=== PATIENT | male | born 1970 | race Caucasian/White ===

== ENCOUNTER 2017-01-22 11:35 | Emergency (ER) | payer SELFPAY ==
[2017-01-22] MEDS ORDERED: Acetaminophen TAB* 325 MG PO ONE (12:47)
--- NOTE | 2017-01-22 13:32 | ED ---
Upper Extremity Pain - HPI Summary HPI Summary: 46F presents with left upper arm pain. He was at work and was working on training with ropes and rope got caught around arm and was hanging partially. He feels pain in his bicep. He has not taken anything for pain. He has limited ROM of his upper arm. He denies any numbness or tingling. He is right handed. - History of Current Complaint Chief Complaint: EDExtremityUpper Stated Complaint: LT ARM INJURY Time Seen by Provider: 01/22/17 12:23 - Allergies/Home Medications Allergies/Adverse Reactions: Allergies Allergy/AdvReac Type Severity Reaction Status Date / Time Penicillins Allergy Unknown Verified 04/14/16 12:08 Reaction Details PMH/Surg Hx/FS Hx/Imm Hx Endocrine/Hematology History: Denies: Hx Diabetes Cardiovascular History: Reports: Hx Hypertension - CONTROL WITH MEDS Denies: Hx Pacemaker/ICD Respiratory History: Denies: Hx Asthma History: Denies: Hx Dialysis, Hx Renal Disease Musculoskeletal History: Reports: Other Musculoskeletal History - RIGHT CARPAL TUNNEL SYNDROME Sensory History: Denies: Hx Contacts or Glasses, Hx Hearing Aid Opthamlomology History: Denies: Hx Contacts or Glasses Psychiatric History: Denies: Hx Panic Disorder - Surgical History Surgery Procedure, Year, and Place: 1990 LEFT SHOULDER RECONSTRUCTION, [facility] Hx Anesthesia Reactions: No Infectious Disease History: No Infectious Disease History: Denies: Traveled Outside the [place] in Last 30 Days - Social History Alcohol Use: Occasionally Substance Use Type: Reports: None Smoking Status (MU): Never Smoked Tobacco Review of Systems Negative: Fever Negative: Chest Pain Negative: Shortness Of Breath Positive: Myalgia - left arm pain All Other Systems Reviewed And Are Negative: Yes Physical Exam Triage Information Reviewed: Yes Vital Signs On Initial Exam: Initial Vitals Temp Pulse Resp BP Pulse Ox 97.3 F 75 16 163/110 96 01/22/17 11:36 01/22/17 11:36 01/22/17 11:36 01/22/17 11:36 01/22/17 11:36 Vital Signs Reviewed: Yes Appearance: Positive: Well-Appearing Skin: Positive: Warm, Dry Head/Face: Positive: Normal Head/Face Inspection Eyes: Positive: Normal, Conjunctiva Clear Respiratory/Lung Sounds: Positive: Clear to Auscultation, Breath Sounds Present Cardiovascular: Positive: Normal, RRR Musculoskeletal: Positive: Strength/ROM Intact - wrist and hand left, Limited @ - elbow left, Other - good pulses, capillary refill<2 secs, pos yearson sign Diagnostics - Vital Signs Vital Signs Temp Pulse Resp BP Pulse Ox 01/22/17 11:36 97.3 F 75 16 163/110 96 - Laboratory Lab Statement: Any lab studies that have been ordered have been reviewed, and results considered in the medical decision making process. - Radiology forearm Xray Interpretation: No Acute Changes Radiology Interpretation Completed By: Radiologist elbow Xray Interpretation: No Acute Changes Radiology Interpretation Completed By: Radiologist humerus Xray Interpretation: No Acute Changes Radiology Interpretation Completed By: Radiologist Course/Dx - Course Course Of Treatment: 46F presents with left upper arm pain. He was at work and was working on training with ropes and rope got caught around arm and was hanging partially. He feels pain in his biceps. He has not taken anything for pain. He has limited ROM of his upper arm. no conner deformity on exam. limited ROM of elbow, pos yearson sign. told likely sprain biceps. do not supect tendon rupture. patient understands and agrees with plan - Diagnoses Differential Diagnosis/HQI/PQRI: Positive: Fracture (Closed), Strain, Sprain, Other - tendon rupture Provider Diagnoses: Left arm pain Discharge - Discharge Plan Condition: Good Disposition: HOME Patient Education Materials: Arm Pain (ED) Forms: *Work Release Referrals: Marquis Moreno MD [Primary Care Provider] - Additional Instructions: Take ibuprofen for pain every 6 hours Ice, elevate Follow up with primary within 7 days Return to ED if develop any new or worsening symptoms
--- NOTE | 2017-01-22 13:57 | RAD ---
INDICATION: Left forearm injury COMPARISON: None TECHNIQUE: AP and lateral views were obtained. FINDINGS: The bony structures, joint spaces, and soft tissues are normal for age. IMPRESSION: NEGATIVE EXAMINATION.
--- NOTE | 2017-01-22 13:58 | RAD ---
INDICATION: Left elbow injury COMPARISON: None TECHNIQUE: AP and lateral views were obtained. FINDINGS: There is no acute fracture or dislocation. There is no joint effusion. There is traction spurring from the olecranon. IMPRESSION: NO ACUTE BONY FINDINGS.
--- NOTE | 2017-01-22 13:58 | RAD ---
INDICATION: Left arm injury COMPARISON: None TECHNIQUE: AP and lateral views were obtained. FINDINGS: There is no acute fracture or dislocation. There are postoperative changes with rotator cuff There is soft tissue swelling. IMPRESSION: NO ACUTE BONY FINDINGS.
[2017-01-22] MEDS ORDERED: Ibuprofen TAB* 800 MG PO ONE (14:50)
[2017-01-22 15:12] VITALS: BP 154/91
== END 2017-01-22 14:55 | disposition home or self-care (01) ==
LOC: ED 11:35
DX: M79.602 Pain in left arm (principal); W23.0XXA Caught, crushed, jammed, or pinched between moving objects, initial encounter; Y92.9 Unspecified place or not applicable; Z88.0 Allergy status to penicillin; I10 Essential (primary) hypertension
CPT/HCPCS: 99282; A9270-GY

== ENCOUNTER 2017-02-02 08:25 | Day surgery (SDC) | payer OTHER ==
[~2017-02-02 08:25] MED LIST: Buffered Lidocaine 0.9% SYRIN* 5 ML/SYR SYRINGE INTRADERM ONE
[2017-02-02] MEDS ORDERED: Buffered Lidocaine 0.9% SYRIN* 5 ML/SYR SYRINGE ONE (08:50)
[2017-02-02] MEDS ORDERED: fentaNYL* 50 MCG/ML 2 ML VIAL (100 MCG VIAL) ONE ×2 (10:23→13:58)
[2017-02-02] MEDS ORDERED: Midazolam* 1 MG/ML 2 ML VIAL (2 MG) ONE (10:23)
[2017-02-02] MEDS ORDERED: Clindamycin 900 MG IVPREMIX(* 900 MG/50 ML SDV IV ONE (10:27)
[2017-02-02] MEDS ORDERED: Bupivacaine 0.25% SDV* 30 ML ONE (10:57)
[2017-02-02] MEDS ORDERED: Bupivacaine 0.5% W/EPI SDV* 30 ML VIAL ONE (11:09)
[2017-02-02] MEDS ORDERED: Dexamethasone IV* 4 MG/ML 1 ML (4 MG) ONE (11:56)
[2017-02-02] MEDS ORDERED: Propofol* 10 MG/ML 20 ML BTL IV PUSH ONE (11:56)
[2017-02-02] MEDS ORDERED: Ondansetron INJ* 2 MG/ML VIAL ONE (11:56)
[2017-02-02] MEDS ORDERED: Lidocaine 2% PF * 5 ML VIAL ONE (11:56)
[2017-02-02] MEDS ORDERED: EPHEDrine (Pressors)* 50 MG/ML VIAL ONE (12:14)
[2017-02-02 14:28] VITALS: BP 124/71
--- NOTE | 2017-02-03 07:32 | OP ---
DATE OF OPERATION: 02/02/17 - [facility] DATE OF : 72 SURGEON: Abraham Holcomb MD INSULATION MANAGER: DARRION Garcia. An household personal assistant was needed for the entirety of the procedure to assist with positioning the arm and retraction. There was also a PA student present, Dimitris Graham. ANESTHESIOLOGIST: Dr. Oshea ANESTHESIA: General with supraclavicular block, preop. PRE-OP DIAGNOSIS: Left distal biceps tendon rupture. POST-OP DIAGNOSIS: Left distal biceps tendon rupture. OPERATIVE PROCEDURE: Repair of left distal biceps tendon. INDICATIONS: Nick ruptured the distal biceps tendon last week. MRI confirmed the tear. We talked about leaving it alone versus repair and what he could expect with each option. He wanted to have the tendon repaired. We talked about risks and benefits including the risk of post-interosseous nerve injury. EBL: 5 mL. COMPLICATIONS: None. FINDINGS: The tendon had torn 75% off of the footprint at the radial tuberosity. There was still a small band, probably 20% to 25% of the tendon that was still attached at the most proximal aspect of the radial tuberosity and it had torn longitudinally leaving this band attached. DESCRIPTION OF PROCEDURE: Nick was seen in the preoperative holding area. Correct site, side, and procedure were identified. We came back to the operating room, where the arm was prepped and draped in the usual fashion and a formal time-out was performed. The arm was exsanguinated with the Esmarch and the tourniquet inflated to 250 mmHg. I began by making a 2-cm transverse incision right in the antecubital fossa at the elbow flexion crease. The dissection was carried down bluntly with the tenotomy scissors and the fascia was opened by spreading the scissors. There was a large hematoma, which was evacuated. The one band of distal biceps tendon remaining was readily apparent. I bluntly dissected any adhesions off of this all the way down to the radial tuberosity with my finger. I then delivered the remainder of the distal biceps tendon down into the distal wound by sliding my finger up the wound and milking the tendon back down into the wound. It was bulbous and degenerative at its distal end where the rupture had occurred. I then decided to go ahead and make my second incision for the 2-incision repair. This was made with a 3-cm incision centered 3.5 cm distal to the radiocapitellar joint and about a centimeter radial to the subcutaneous border of the ulna. Dissection was carried down through the subcutaneous tissue and the fascia was opened longitudinally. I then split the muscle fibers with a couple of elevators in line with the fibers. [facility] retractors were placed. The arm was fully pronated and the supinator was split to reveal the fatty bursa over the radial tuberosity. This was excised with the Metzenbaum scissors and the footprint of the biceps tendon was readily apparent. There were shards of the tendon still attached to the radial tuberosity. Again, with the forearm maximally pronated and the tuberosity in view, I could see where that remaining piece of tendon was still attached to the most proximal aspect of the tuberosity. I used my 15 blade and went ahead and released this. I then irrigated out the wound and turned my attention back to the proximal wound. I delivered both strands of the biceps tendon into the antecubital fossa wound. I placed an Allis and full tension on the strands and then debrided them back to the same level at a level where there was nothing, but good healthy tendon. I sewed them [id number] with some 2-0 FiberWire suture. I then placed 2 whip stitches up in the tendon about 4 cm of the tendon with each suture, one was with a #2 FiberWire in Krackow fashion and the other was with a #5 Ethibond suture also in Krackow fashion. I then turned my attention back to the dorsal wound. The radial tuberosity was once again visualized with the aid of retractors. I used a 4-mm zack to open up a bony trough in the middle of the radial tuberosity about 7 to 10 mm in length. I then let the arm go into some supination and used a 2.0 drill bit to drill 2 holes out the more anterior cortex of the radius. These were about a centimeter apart. I then passed a Sophia clamp through the interosseous membrane along the course of the biceps tendon and into my dorsal wound. The mid portion of a #5 Ethibond suture tail was clamped with a Sophia and pulled up into the antecubital fossa wound and then this was used to shuttle the FiberWire and Ethibond sutures that had been whipped into the tendon into the dorsal wound. I then delivered the distal biceps tendon into the dorsal wound. I then placed a couple of 0 Prolene sutures through my 2 drill holes and used those to suture shuttle one strand of #5 Ethibond and one strand of #2 FiberWire through each drill hole. I then had my household personal assistant pull full tension on the #5 Ethibond suture to deliver the distal biceps tendon into the bony trough. It went very nicely into the bony trough. I then tied off the #2 FiberWire. I then tied off the #5 Ethibond. I then checked the repair and the tendon was very nicely pulled into the trough. It moved as a unit without any gapping when I pronated and supinated the arm. I was very satisfied, so I went ahead and irrigated out the wound. Please note that I had copiously irrigated out the wound while I was preparing my trough and my drill holes, so as to minimize the chance of leaving any bony fragments in the wound. After the repair was done, I went ahead and closed the fascia and the dorsal wound with a 0 Polysorb suture. The skin was then closed with 4-0 nylon suture. I then irrigated out my antecubital fossa wound and closed the skin with 4-0 nylon suture. The wounds were dressed with Xeroform, 4x4's, sterile Webril, and a posterior slab with a lateral strut was placed with the arm in 80 degrees of flexion and in resting amount of supination , which was about 40 to 60 degrees. Tourniquet was deflated. The hand pinked up immediately. He was then awoken up and taken to recovery room in stable condition. [id number]/[facility] #: [id number] LIZA
== END 2017-02-02 14:42 | disposition home or self-care (01) ==
LOC: OREAST 08:25
PROVIDERS: ATTEND Orthopaedic Surgery Hand Surgery
DX: S46.212A Strain of muscle, fascia and tendon of other parts of biceps, left arm, initial encounter (principal); I10 Essential (primary) hypertension; X50.0XXA Overexertion from strenuous movement or load, initial encounter; Y92.9 Unspecified place or not applicable; Y99.0 Civilian activity done for income or pay
CPT/HCPCS: J1100; J2250; J2405; J2704; J3010

== ENCOUNTER 2018-06-28 12:58 | Day surgery (SDC) | payer OTHER ==
[~2018-06-28 12:58] MED LIST changes: +Famotidine IV* 10 MG/ML 2 ML (20 mg) IV ONE; +Famotidine IV* 10 MG/ML 2 ML (20 mg) ONE; +Lactated Ringers 1000 ML Bag* 1,000 ML IV SCH; +Midazolam* 1 MG/ML 5 ML VIAL (5 MG) ONE; +fentaNYL* 50 MCG/ML 2 ML VIAL (100 MCG VIAL) ONE
[2018-06-28] MEDS ORDERED: ceFAZolin 2 GM PREMIX in ORs 2 GM/50 ML BAG IVPB ONE (13:06)
[2018-06-28] MEDS ORDERED: HYDROmorphone INJ1* 1 MG/ML SYRINGE IV PRN (13:58)
[2018-06-28] MEDS ORDERED: Naloxone* 0.4 MG/ML 1 ML VIAL IV PRN (13:58)
[2018-06-28] MEDS ORDERED: DiMENhydriNATE IV* 50 MG/ML VIAL IV PUSH PRN (13:58)
[2018-06-28] MEDS ORDERED: HYDROcodone/ACETAMIN 5-325 MG* 1 TAB PO PRN (13:58)
[2018-06-28] MEDS ORDERED: Bupivacaine 0.25% SDV PF* 10 ML VIAL INJ ONE ×2 (14:34→15:46)
[2018-06-28] MEDS ORDERED: Propofol* 10 MG/ML 20 ML BTL ONE (15:10)
[2018-06-28] MEDS ORDERED: Dexamethasone IV* 4 MG/ML 1 ML (4 MG) ONE (15:10)
[2018-06-28] MEDS ORDERED: Ketorolac INJ* 30 MG/ML 1 ML VIAL ONE (15:10)
[2018-06-28] MEDS ORDERED: Ondansetron INJ* 2 MG/ML VIAL ONE (15:10)
[2018-06-28] MEDS ORDERED: Lidocaine 2% PF * 5 ML VIAL ONE (15:10)
[2018-06-28] MEDS ORDERED: Clindamycin 900 MG/D5W BAG(*) 900 MG/50 ML BAG IVPB ONE (15:17)
[2018-06-28] MEDS ORDERED: fentaNYL* 50 MCG/ML 2 ML VIAL (100 MCG VIAL) ONE ×2 (15:34→16:13)
[2018-06-28] MEDS ORDERED: KETAMINE HCL* 50 MG/ML 10 ML VIAL ONE (15:35)
[2018-06-28] MEDS ORDERED: HYDROmorphone INJ* 0.5 MG/0.5 ML SYRINGE ONE (15:53)
[2018-06-28 18:23] VITALS: BP 128/72
--- NOTE | 2018-07-14 07:17 | OP ---
OPERATIVE REPORT: DATE OF OPERATION: 06/28/18 DATE OF : 72 SURGEON: Abraham Holcomb MD.. GRIZZLYMAN: DARRION Blank. An speech language pathology assistant was needed for the entirety of the procedure to aid in positioning of the arm and retraction. ANESTHESIOLOGIST: Dr. Ruby. ANESTHESIA: General. PRE-OP DIAGNOSES: 1. 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 2. Left severe distal biceps tendinosis and tendonitis, status post surgical repair in January 2017. 3. Left radial nerve neuritis at the elbow. POST-OP DIAGNOSES: 1. 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 2. Left severe distal biceps tendinosis and tendonitis, status post surgical repair in January 2017. 3. Left radial nerve neuritis at the elbow. OPERATIVE PROCEDURE: 1. Left distal biceps tendon debridement with tenolysis. 2. Left median nerve decompression at the proximal forearm and elbow. INDICATIONS: Nick is 47 years old. I did distal biceps tendon repair in January 2017. Now, a year and a half later, he has developed over the last several months severe pain in the antecubital area and lot of median nerve symptoms. He is status post prior carpal tunnel release surgery by me, after which he had had excellent resolution in the median nerve symptoms. Any pressure in the elbow causes median nerve symptoms. He gets some sharp stabbing pains in the elbow. I got an MRI, which showed a lot of tendon thickening and tendinosis. We have been trying to treat this nonoperatively for several months; however, his symptoms continue to progress and so, given his MRI findings, we had discussed doing a debridement at the distal biceps tendon as well as decompressing the median nerve in the proximal forearm. We did have a discussion of risks and benefits including the risk of persistent nerve symptoms despite surgery, risk of biceps tendon rupture after the debridement as well as the risk of nerve injury and other general surgical risks that can occur. He understands these and he wishes to proceed with surgery. ESTIMATED BLOOD LOSS: 5 mL. COMPLICATIONS: None. FINDINGS: See above and below. DESCRIPTION OF PROCEDURE: Nick was seen in the preoperative holding area. The correct side, site, and procedure were identified. We came back to the operating room and the arm was prepped and draped in the usual fashion. A time- out was performed. The patient was positioned supine with the use of an arm table. The arm was exsanguinated with the Esmarch and the tourniquet was inflated. I then began by making a lazy-S type incision with a transverse split in the antecubital fossa, incorporating his prior incision there. Dissection was carried down and the lateral antebrachial cutaneous nerve was identified and protected throughout the case. Once I got down to the fascia, I immediately encountered a dense and fibrotic lacertus fibrosis, which was several millimeters thick and really quite dense scar tissue. I excised this in its entirety. I then identified the brachial artery and the median nerve as it coursed through the antecubital fossa. This was released from well proximal to the antecubital fossa down towards the pronator teres. It was decompressed as it coursed through towards the pronator teres. I was able to release the leading edge of the FDS tendon arc. There were some traversing veins that were ligated to complete the dissection. Larger veins were tied off with 3-0 silk ties and smaller vessels were cauterized with the bipolar. Once I had completely decompressed the median nerve, we obtained hemostasis. I then addressed the distal biceps tendon. This was encased in a lot of scar tissue. It was very thick and there was a lot of degenerative tissue around the normal, healthy-looking collagen. I came proximally and I began the debridement, debriding all of the degenerative tissue, leaving only healthy collagen. The prior Ethibond and FiberWire sutures were encountered. The portions that were removable were removed. There were quite a few adhesions and all of the adhesions were released. As I dissected down towards the attachment, there were a couple of veins that were tied off with some silk ties. I did locate the radial recurrent artery. I was actually able to preserve this with the associated venae comitantes. I did take the tenolysis and debridement all the way down to the attachment on the radius. Once the tenolysis was complete I could pull on the biceps tendon and this resulted in elbow flexion and forearm supination. With the nerve completely decompressed and the biceps tendon debridement completed, I went ahead and irrigated out the wound. Any bleeding vessels were checked for and hemostasis was obtained with the Bovie and bipolar cautery. Once everything was looking good, the skin was closed with Monocryl suture and Steri- Strips. Plain Marcaine 0.25% was infiltrated all around the operative area. The arm was placed in a soft dressing. He was taken to the recovery room in stable condition. [id number]/[facility] #: [id number] LIZA
== END 2018-06-28 18:23 | disposition home or self-care (01) ==
LOC: OREAST 12:58
PROVIDERS: ATTEND Orthopaedic Surgery Hand Surgery
DX: G56.12 Other lesions of median nerve, left upper limb (principal); G56.32 Lesion of radial nerve, left upper limb; M65.832 Other synovitis and tenosynovitis, left forearm
CPT/HCPCS: C1763; J0690; J1100; J1170; J1885; J2250; J2405; J2704; J3010; J3490

== ENCOUNTER 2018-06-28 23:36 | Inpatient (IN) | payer OTHER ==
[2018-06-28] MEDS ORDERED: fentaNYL* 50 MCG/ML 2 ML VIAL (100 MCG VIAL) IV SLOW PU ONE (23:47)
--- OUTSIDE RECORDS SUMMARY | 2018-06-28 23:49 | XMS REPORT | Continuity of Care Document ---
:1970 External Reference #:[id number] Author Name Elaina White Care Team Providers Name Role Phone Marquis Moreno M.D. Primary Care Physician Unavailable Payers Type Date Identification Numbers Payment Provider Subscriber Policy Number: [id number] [employer] Nick Fernandez PayID: [id number] [address] [address] [place] [address] Effective: 2017 Policy Number: [id number] [employer] Nick Fernandez Onset: 2017 Group Name: [phone] [address] PayID: [id number] [place] [address] Advance Directives Description No Information Available Problems Date Description Provider Status Onset: 04/12/2016 Carpal tunnel syndrome Abraham Holcomb MD Active Onset: 01/31/2017 Strain of muscle, fascia and tendon of Abraham Holcomb MD Active other parts of biceps, left arm, subsequent encounter Onset: 06/13/2018 Late effect of sprain AND/OR strain Abraham Holcomb MD Active without tendon injury Onset: 05/23/2018 Lesion of radial nerve Abraham Holcomb MD Active Onset: 04/11/2018 Lesion of median nerve Abraham Holcomb MD Active Family History Date Family Member(s) Problem(s) Comments General Hypertension Social History Type Date Description Comments Sex Unknown Lives With Occupation Currently Working ETOH Use Currently consumes alcohol Tobacco Use Start: Unknown Patient has never smoked Smoking Status Reviewed: 06/13/18 Patient has never smoked Exercise Type/Frequency Exercises regularly Allergies, Adverse Reactions, Alerts Date Description Reaction Status Severity Comments 06/13/2018 Penicillin Active 04/12/2016 NKDA Inactive Medications Medication Date Status Form Strength Qnty SIG Indications Ordering Provider Losartan Active Unknown Potassium 000 [place] Hx Tablets 5-325mg 30tabs 1 by Abraham 017 - mouth MD Zhang every 4 017 to 6 hours as needed Tramadol HCL Hx Tablets 50mg 42tabs 1-2 Abraham 017 - tablet by MD Zhang mouth 017 every 8 hours as needed pain [place] Hx Tablets 5-325mg 20tabs one to Cynthia 016 - two tabs RIMA Wise by mouth 016 every 4-6 hours as needed pain Amlodipine Hx Tablets 5mg 1 by Unknown Besylate 000 - mouth every day 017 Immunizations Description No Information Available Vital Signs Date Vital Result Comment 06/13/2018 11:16am Height 71 inches 5'11" Weight 223.00 lb Heart Rate 51 /min BP Systolic 140 mmHg BP Diastolic 82 mmHg Respiratory Rate 18 /min Pain Level 8 BMI (Body Mass Index) 31.1 kg/m2 05/23/2018 8:41am Height 71 inches 5'11" Heart Rate 72 /min BP Systolic 140 mmHg BP Diastolic 86 mmHg Body Temperature 97.1 F Pain Level 4 04/11/2018 8:58am Height 71 inches 5'11" Respiratory Rate 18 /min Pain Level 2 03/07/2018 8:05am Height 71 inches 5'11" Weight 228.00 lb BP Systolic 144 mmHg BP Diastolic 90 mmHg Respiratory Rate 16 /min Body Temperature 95.7 F Pain Level 2 BMI (Body Mass Index) 31.8 kg/m2 10/11/2017 8:03am Height 71 inches 5'11" Weight 225.00 lb Heart Rate 72 /min Respiratory Rate 16 /min Pain Level 3 BMI (Body Mass Index) 31.4 kg/m2 05/24/2017 8:19am Height 71 inches 5'11" Weight 225.00 lb Heart Rate 60 /min Respiratory Rate 15 /min Body Temperature 95.7 F Pain Level 0 BMI (Body Mass Index) 31.4 kg/m2 04/21/2017 8:23am Heart Rate 72 /min Respiratory Rate 16 /min Body Temperature 97.8 F 03/10/2017 8:24am Height 71 inches 5'11" Weight 225.00 lb Heart Rate 72 /min BP Systolic 128 mmHg BP Diastolic 82 mmHg Body Temperature 97.1 F Pain Level 5 BMI (Body Mass Index) 31.4 kg/m2 02/15/2017 3:44pm Height 71 inches 5'11" Weight 225.00 lb BP Systolic 130 mmHg BP Diastolic 78 mmHg Body Temperature 97.3 F Pain Level 3 BMI (Body Mass Index) 31.4 kg/m2 01/31/2017 1:41pm Height 71 inches 5'11" Weight 225.00 lb Heart Rate 76 /min BP Systolic 120 mmHg BP Diastolic 82 mmHg Respiratory Rate 18 /min Body Temperature 97.3 F Pain Level 3 BMI (Body Mass Index) 31.4 kg/m2 01/27/2017 8:52am Height 71 inches 5'11" Weight 225.00 lb Heart Rate 76 /min BP Systolic 139 mmHg BP Diastolic 100 mmHg Respiratory Rate 17 /min Body Temperature 96.8 F Pain Level 8 BMI (Body Mass Index) 31.4 kg/m2 04/27/2016 1:37pm Heart Rate 59 /min BP Systolic 120 mmHg BP Diastolic 78 mmHg Pain Level 0 04/12/2016 2:23pm Height 71 inches 5'11" Weight 224.00 lb Pain Level 6 BMI (Body Mass Index) 31.2 kg/m2 Results Description No Information Available Procedures Date Code Description Status 02/02/2017 69696 reinsertion ruptured biceps or triceps tendon,distal with Completed or w/o 02/02/2017 94118 reinsertion ruptured biceps or triceps tendon,distal with Completed or w/o 04/14/2016 77160 Carpal Tunnel Release Completed 04/14/2016 05990 Carpal Tunnel Release Completed Encounters Type Date Location Provider Dx Diagnosis Office Visit 05/23/2018 [facility] Abraham Holcomb, G56.12 Other lesions of 8:45a [facility] median nerve, left upper limb G56.32 Lesion of radial nerve, left upper limb S46.212D Strain of musc/fasc/tend prt biceps, left arm, subs Office Visit 04/11/2018 8:30a [facility] Abraham Holcomb G56.12 Other lesions [facility] of median nerve, left upper limb S46.212D Strain of musc/fasc/tend prt biceps, left arm, subs Office Visit 03/07/2018 [facility] Abraham S46.212D Strain of 8:15a [facility] musc/fasc/tend prt [facility] biceps, left arm, subs G56.12 Other lesions of median nerve, left upper limb S46.212D Strain of musc/fasc/tend prt biceps, left arm, subs Office Visit 10/11/2017 [facility] Abraham S46.212D Strain of 8:00a [facility] musc/fasc/tend prt [facility] biceps, left arm, subs Office Visit 05/24/2017 [facility] S46.212D Strain of 8:15a [facility] musc/fasc/tend prt [facility] biceps, left arm, subs Office Visit 01/31/2017 [facility] S46.212D Strain of 1:45p [facility] musc/fasc/tend prt [facility] biceps, left arm, subs S46.212D Strain of musc/fasc/tend prt biceps, left arm, subs Office Visit 01/27/2017 [facility] S46.212A Strain of 8:30a [facility] musc/fasc/tend prt [facility] biceps, left arm, init Office Visit 04/12/2016 [facility] G56.01 Carpal tunnel 2:00p [facility] syndrome, right [facility] upper limb Plan of Treatment Future Appointment(s):07/11/2018 9:15 am - Abraham Holcomb MD [facility]06/28/2018 9:45 am - Abraham Holcomb MD [facility]06/13/2018 - Abraham Holcomb MDG56.12 Other lesions of median nerve, left upper limbG56.32 Lesion of radial nerve, left upper limbS46.212S Strain of muscle, fascia and tendon of other parts of bicepsFollow up:Follow up : 10-14 days postop
--- OUTSIDE RECORDS SUMMARY | 2018-06-28 23:49 | XMS REPORT | Continuity of Care Document ---
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 PayID: [id number] [place] [id number] Effective: 2012 Policy Number: [id number] [facility] Kenia Chacon Jim Group Name: [place] [address] PayID: [id number] EVE Vega [id number] Onset: 2009 Policy Number: [id number] [employer] Kenia Chacon Jim PayID: [id number] [address] [place] [address] Onset: 2010 Policy Number: [id number] [employer] Kenia Ines Callaway PayID: [id number] [address] [place] [address] Expires: 2013 Policy Number: [id number] [facility] Kenia Chacon Jim [address] [place] [address] Onset: 2017 Policy Number: [id number] [employer] Kenia Chacon Jim PayID: [id number] [address] [place] [address] Advance Directives Description No Information Available Problems Date Description Provider Status Onset: 07/26/2016 Essential hypertension ANDRIA Sanchez Active Family History Date Family Member(s) Problem(s) Comments Father Hypertension Mother Hypertension Social History Type Date Description Comments Sex Unknown Marital Status Lives With Spouse Lives With Daughter Diet Healthy, Well Balanced Occupation [employer] works in [place] Tobacco Use Start: Unknown Never Smoked Cigarettes ETOH Use Occasionally consumes alcohol Recreational Drug Use Denies Drug Use Tobacco Use Start: Unknown Patient has never smoked Smoking Status Reviewed: 08/11/17 Patient has never smoked Enjoy Exercising Enjoys exercising four times/week cardio and weights Allergies, Adverse Reactions, Alerts Date Description Reaction Status Severity Comments 12/10/2007 PCN Active hives Medications Medication Date Status Form Strength Qnty SIG Indications Ordering Provider Losartan Potassium 06/19 Active Tablets 50mg 30tab take one Simi s tablet by RIMA Manzo mouth every day for heart and for blood pressure; replaces 25mg Valacyclovir HCL 05/18 Active Tablets 500mg 10tab 1 tab by Dharmesh s mouth twice [place] a day x 5 , MD days Multivitamen 07/03 Active 1 po daily Kristina [employer] Percocet 01/23 Hx Tablets 7.5-325mg 10tab 1 tab by S46.202A Dharmesh s mouth three [place] - times a day , 08/11 as needed /2017 for pain Losartan Potassium 07/26 Hx Tablets 25mg 90tab 1 by mouth I10 Shawnti s every day Mildred Aguila, - [employer] 06/19 Losartan Potassium 07/26 Hx Tablets 25mg 90tab Take One I10 Shawnti s Tablet By Mildred Aguila, - Mouth Every [employer] Amlodipine 06/07 Hx Tablets 10mg 30tab 1 by mouth I10 Kori Besylate /2015 s every day Kristina, - [employer] 08/10 Prednisone 03/30 Hx Tablets 20mg 10tab take 2 tabs R20.2 Kori s by mouth Kristina, - every day x [employer] 06/07 /2015 Doxycycline 01/18 Hx Tablets 100mg 20tab 1 tab by L03.011 Jm Hyclate /2015 s mouth twice Mariel - a day for III, 06/07 10 days for [employer] infection Amlodipine 08/03 Hx Tablets 5mg 30tab 1 by mouth I10 Kori Besylate /2015 s every day Kristina, - [employer] 06/07 Lisinopril 07/01 Hx Tablets 5mg 30tab 1 by mouth I10 Kori s every day Kristina, - [employer] 08/03 Hydrochlorothiazid 06/01 Hx Capsules 12.5mg 30cap take one I10 Kori s capsule by Kristina, - mouth every [employer] 07/01 Hydrocodone/Acetam 12/24 Hx Tablets 5-325mg 40for 1 or 2 po 847.1 wnt ty q6hr prn Mildred Aguila, - severe pain [employer] 12/28 Ibuprofen 12/24 Hx Tablets 600mg 60tab 1 tid po 847.1 nt s for pain, Mildred Aguila, - take with [employer] 03/11 Return To Work 07/23 Hx may return 840.8 to work Wed Mildred Aguila, - Jul 29 [employer] 08/02 without restriction s Physical Therapy 07/20 Hx eval and 840.8 nt treat right Mildred Aguila, - shoulder [employer] 12/28 pain/strain No Work 07/20 Hx 840.8 wnt Mildred Aguila, - [employer] 07/23 Erythromycin 12/09 Hx Ointment 5mg/GM 1gm Opth 372.03 Ointment To Mildred Aguila, - Both Eyes 4 [employer] 03/12 Times Daily For 5 Days Medications Administered in Office Medication Date Status Form Strength Qnty SIG Indications Ordering Provider TB,Intradermal Administered Injection Unknown (PPD, Mantoux) 015 Immunizations CPT Code Status Date Vaccine Lot # [id number] Given 04/27/2017 Influenza Virus Vaccine, Quadrivalent, 3 Yr > Quad, Preserv Free 13965 Given 05/27/2016 Influenza Virus Vaccine, Quadrivalent, 3 Yr > Quad, Preserv Free 95925 Given 01/19/2016 Td Age 7 to adult (Tenivac, Decavac, Mass [id number]ologics) 74873 Given 05/26/2015 Influenza Virus Vaccine, Quadrivalent, 3 Yr > Quad, Preserv Free 48272 Given Unknown Influenza Virus Vaccine, Quadrivalent, 3 Yr > Quad, Preserv Free Vital Signs Date Vital Result Comment 06/19/2018 3:45pm Weight 221.00 lb Weight 100.246 kg BP Systolic 148 mmHg BP Diastolic 88 mmHg Heart Rate 64 /min Body Temperature 97.8 F Respiratory Rate 16 /min Height 70 inches 5'10" BMI (Body Mass Index) 31.7 kg/m2 O2 % BldC Oximetry 96 % 08/11/2017 8:54am Weight 228.00 lb Weight 103.421 kg BP Systolic 138 mmHg BP Diastolic 85 mmHg Heart Rate 56 /min Body Temperature 95.8 F Height 70 inches 5'10" BMI (Body Mass Index) 32.7 kg/m2 01/23/2017 4:35pm Weight 222.00 lb Weight 100.699 kg BP Systolic 138 mmHg BP Diastolic 100 mmHg Heart Rate 68 /min Body Temperature 97.0 F Respiratory Rate 16 /min 08/10/2016 8:53am Weight 229.00 lb Weight 103.874 kg BP Systolic 140 mmHg BP Diastolic 79 mmHg Heart Rate 72 /min 07/26/2016 9:59am Weight 234.00 lb Weight 106.142 kg BP Systolic 156 mmHg BP Diastolic 92 mmHg Heart Rate 64 /min Body Temperature 98.3 F Respiratory Rate 16 /min O2 % BldC Oximetry 98 % 06/07/2016 8:13am Weight 222.00 lb Weight 100.699 kg BP Systolic 140 mmHg BP Diastolic 90 mmHg Heart Rate 60 /min Respiratory Rate 12 /min Height 70 inches 5'10" BMI (Body Mass Index) 31.9 kg/m2 03/30/2016 4:32pm Weight 218.00 lb Weight 98.885 kg BP Systolic 134 mmHg BP Diastolic 88 mmHg Heart Rate 56 /min Body Temperature 98.5 F Respiratory Rate 16 /min 01/19/2016 3:27pm Weight 223.00 lb Weight 101.153 kg BP Systolic 130 mmHg BP Diastolic 80 mmHg Heart Rate 61 /min Body Temperature 98.3 F 08/03/2015 9:49am Weight 224.00 lb Weight 101.606 kg BP Systolic 132 mmHg BP Diastolic 84 mmHg Heart Rate 76 /min 07/01/2015 8:46am Weight 223.50 lb Weight 101.380 kg BP Systolic 142 mmHg repeat 134/90 BP Diastolic 92 mmHg repeat 134/90 Heart Rate 68 /min 06/01/2015 1:29pm Weight 224.00 lb Weight 101.606 kg BP Systolic 156 mmHg repeat 144/88 BP Diastolic 100 mmHg repeat 144/88 Heart Rate 70 /min Height 70 inches 5'10" BMI (Body Mass Index) 32.1 kg/m2 Right Visual Acuity Distance 20/20 Left Visual Acuity Distance 20/13 Both Visual Acuity Distance 20/13 05/28/2014 7:58am Weight 223.00 lb Weight 101.153 kg BP Systolic 142 mmHg BP Diastolic 90 mmHg Heart Rate 72 /min Height 70.5 inches 5'10.50" BMI (Body Mass Index) 31.5 kg/m2 05/22/2013 8:09am Weight 219.00 lb Weight 99.338 kg BP Systolic 130 mmHg BP Diastolic 86 mmHg Heart Rate 64 /min Height 70.5 inches 5'10.50" BMI (Body Mass Index) 31.0 kg/m2 07/03/2012 8:07am Weight 220.00 lb Weight 99.792 kg BP Systolic 134 mmHg BP Diastolic 92 mmHg Heart Rate 64 /min Height 70 inches 5'10" BMI (Body Mass Index) 31.6 kg/m2 06/29/2011 2:48pm Weight 228.00 lb Weight 103.421 kg BP Systolic 130 mmHg BP Diastolic 86 mmHg Heart Rate 72 /min Body Temperature 97.6 F Right Visual Acuity Distance 20/30 No Correction Left Visual Acuity Distance 20/20 No Correction Both Visual Acuity Distance 20/20 No Correction Last Menstrual Period 0 04/11/2011 8:54am Weight 228.00 lb Weight 103.421 kg BP Systolic 152 mmHg BP Diastolic 80 mmHg Heart Rate 68 /min 03/30/2011 11:08am BP Systolic 118 mmHg BP Diastolic 70 mmHg Heart Rate 64 /min Body Temperature 97.1 F 03/11/2011 8:02am Weight 223.00 lb Weight 101.153 kg BP Systolic 140 mmHg BP Diastolic 86 mmHg Heart Rate 56 /min Body Temperature 96.7 F Height 67 inches 5'7" BMI (Body Mass Index) 34.9 kg/m2 12/28/2010 9:22am Weight 226.00 lb Weight 102.514 kg BP Systolic 130 mmHg BP Diastolic 80 mmHg Heart Rate 72 /min Body Temperature 96.5 F 12/24/2010 2:45pm Weight 224.00 lb Weight 101.606 kg BP Systolic 152 mmHg BP Diastolic 98 mmHg Heart Rate 74 /min Body Temperature 97.3 F O2 % BldC Oximetry 99 % 07/23/2009 8:03am Weight 224.00 lb Weight 101.606 kg BP Systolic 142 mmHg BP Diastolic 88 mmHg Heart Rate 56 /min 07/20/2009 9:13am Weight 227.00 lb Weight 102.967 kg BP Systolic 142 mmHg BP Diastolic 90 mmHg Heart Rate 80 /min 03/12/2009 1:26pm Weight 220.00 lb Weight 99.792 kg BP Systolic 144 mmHg BP Diastolic 82 mmHg Heart Rate 64 /min Height 70 inches 5'10" BMI (Body Mass Index) 31.6 kg/m2 Right Visual Acuity Distance 20/25 Left Visual Acuity Distance 20/20 Both Visual Acuity Distance 20/20 12/10/2007 8:50am Weight 227.00 lb Weight 102.967 kg BP Systolic 138 mmHg BP Diastolic 84 mmHg Heart Rate 76 /min Results Test Date Facility Test Result H/L Range Note CBC Auto Diff 08/11/2017 [facility] White Blood 4.9 10^3/uL 3.5-10.8 [phone] Count Red Blood Count 5.46 10^6/uL High 4.0-5.4 Hemoglobin 15.0 g/dL 14.0-18.0 Hematocrit 46 % 42-52 Mean Corpuscular Volume 83 fL 80-94 Mean Corpuscular Hemoglobin 28 pg 27-31 Mean Corpuscular HGB Conc 33 g/dL 31-36 Red Cell Distribution Width 15 % 10.5-15 Platelet Count 177 10^3/uL 150-450 Mean Platelet Volume 10 um3 7.4-10.4 Abs Neutrophils 2.8 10^3/uL 1.5-7.7 Abs Lymphocytes 1.3 10^3/uL 1.0-4.8 Abs Monocytes 0.4 10^3/uL 0-0.8 Abs Eosinophils 0.3 10^3/uL 0-0.6 Abs Basophils 0.1 10^3/uL 0-0.2 Abs Nucleated RBC 0 10^3/uL Granulocyte % 57.1 % 38-83 Lymphocyte % 27.5 % 25-47 Monocyte % 8.7 % 1-9 Eosinophil % 5.7 % 0-6 Basophil % 1.0 % 0-2 Nucleated Red Blood Cells % 0 Comp Metabolic Panel 08/11/2017 [facility] Sodium 138 mmol/L 133-145 [phone] Potassium 3.9 mmol/L 3.5-5.0 Chloride 103 mmol/L 101-111 Co2 Carbon Dioxide 31 mmol/L 22-32 Anion Gap 4 mmol/L 2-11 Glucose 100 mg/dL 70-100 Blood Urea Nitrogen 14 mg/dL 6-24 Creatinine 0.90 mg/dL 0.67-1.17 BUN/Creatinine Ratio 15.6 8-20 Calcium 9.4 mg/dL 8.6-10.3 Total Protein 6.7 g/dL 6.4-8.9 Albumin 4.6 g/dL 3.2-5.2 Globulin 2.1 g/dL 2-4 Albumin/Globulin Ratio 2.2 1-3 Total Bilirubin 0.80 mg/dL 0.2-1.0 Alkaline Phosphatase 50 U/L 34-104 Alt 25 U/L 7-52 Ast 23 U/L 13-39 Egfr Non- 91.3 >60 Egfr 117.4 >60 1 Lipid Profile 08/11/2017 [facility] Triglycerides 145 mg/dL 2 (Trig/Chol/HDL) [phone] Cholesterol 173 mg/dL 3 HDL Cholesterol 42.8 mg/dL 4 LDL Cholesterol 101 mg/dL 5 Laboratory test 07/26/2016 [facility] T3 Total 1.33 ng/mL 0.87-1.78 6 finding [phone] Free T4 (Free Thyroxine) 0.82 ng/dL 0.61-1.12 7 TSH (Thyroid Stim Horm) 2.63 mcIU/mL 0.34-5.60 8 Thyroperoxidase AB 1.81 IU/mL <9 9 CBC Auto Diff 06/07/2016 [facility] White Blood 4.2 10^3/uL 3.5-10.8 [phone] Count Red Blood Count 5.48 10^6/uL High 4.0-5.4 Hemoglobin 14.9 g/dL 14.0-18.0 Hematocrit 45 % 42-52 Mean Corpuscular Volume 82 fL 80-94 Mean Corpuscular Hemoglobin 27 pg 27-31 Mean Corpuscular HGB Conc 33 g/dL 31-36 Red Cell Distribution Width 15 % 10.5-15 Platelet Count 169 10^3/uL 150-450 Mean Platelet Volume 10 um3 7.4-10.4 Abs Neutrophils 2.4 10^3/uL 1.5-7.7 Abs Lymphocytes 1.1 10^3/uL 1.0-4.8 Abs Monocytes 0.4 10^3/uL 0-0.8 Abs Eosinophils 0.2 10^3/uL 0-0.6 Abs Basophils 0.1 10^3/uL 0-0.2 Abs Nucleated RBC 0.01 10^3/uL Granulocyte % 56.2 % 38-83 Lymphocyte % 27.2 % 25-47 Monocyte % 9.8 % High 1-9 Eosinophil % 5.5 % 0-6 Basophil % 1.3 % 0-2 Nucleated Red Blood Cells % 0.1 Comp Metabolic Panel 06/07/2016 [facility] Sodium 138 mmol/L 133-145 [phone] Potassium 4.3 mmol/L 3.5-5.0 Chloride 103 mmol/L 101-111 Co2 Carbon Dioxide 29 mmol/L 22-32 Anion Gap 6 mmol/L 2-11 Glucose 91 mg/dL 70-100 Blood Urea Nitrogen 15 mg/dL 6-24 Creatinine 0.88 mg/dL 0.67-1.17 BUN/Creatinine Ratio 17.0 8-20 Calcium 9.2 mg/dL 8.6-10.3 Total Protein 6.4 g/dL 6.4-8.9 Albumin 4.4 g/dL 3.2-5.2 Globulin 2.0 g/dL 2-4 Albumin/Globulin Ratio 2.2 1-3 Total Bilirubin 0.80 mg/dL 0.2-1.0 Alkaline Phosphatase 42 U/L 34-104 Alt 26 U/L 7-52 Ast 19 U/L 13-39 Egfr Non- 94.1 >60 Egfr 121.0 >60 10 Lipid Profile 06/07/2016 [facility] Triglycerides 128 mg/dL 11 (Trig/Chol/HDL) [phone] Cholesterol 160 mg/dL 12 HDL Cholesterol 39.0 mg/dL 13 LDL Cholesterol 95 mg/dL 14 Laboratory test 06/07/2016 [facility] PSA Screening 0.407 0-4.000 15 finding [phone] ng/mL CBC Auto Diff 06/01/2015 [facility] White Blood 6.9 4.8-10.8 [phone] Count 10^3/uL Red Blood Count 5.58 10^6/uL High 4.0-5.4 Hemoglobin 15.3 g/dL 14.0-18.0 Hematocrit 47 % 42-52 Mean Corpuscular Volume 84 fL 80-94 Mean Corpuscular Hemoglobin 27 pg 27-31 Mean Corpuscular HGB Conc 33 g/dL 31-36 Red Cell Distribution Width 15 % 10.5-15 Platelet Count 177 10^3/uL 150-450 Mean Platelet Volume 10 um3 7.4-10.4 Abs Neutrophils 4.6 10^3/uL 1.5-7.7 Abs Lymphocytes 1.4 10^3/uL 1.0-4.8 Abs Monocytes 0.5 10^3/uL 0-0.8 Abs Eosinophils 0.3 10^3/uL 0-0.6 Abs Basophils 0 10^3/uL 0-0.2 Abs Nucleated RBC 0.01 10^3/uL Granulocyte % 66.7 % 38-83 Lymphocyte % 19.9 % Low 25-47 Monocyte % 7.7 % 1-9 Eosinophil % 5.0 % 0-6 Basophil % 0.7 % 0-2 Nucleated Red Blood Cells % 0.2 Comp Metabolic Panel 06/01/2015 [facility] Sodium 137 mmol/L 133-145 [phone] Potassium 3.9 mmol/L 3.5-5.0 Chloride 102 mmol/L 101-111 Co2 Carbon Dioxide 30 mmol/L 22-32 Anion Gap 5 mmol/L 2-11 Glucose 85 mg/dL 70-100 Blood Urea Nitrogen 14 mg/dL 6-24 Creatinine 0.94 mg/dL 0.67-1.17 BUN/Creatinine Ratio 14.9 8-20 Calcium 9.4 mg/dL 8.6-10.3 Total Protein 6.4 g/dL 6.4-8.9 Albumin 4.5 g/dL 3.2-5.2 Globulin 1.9 g/dL Low 2-4 Albumin/Globulin Ratio 2.4 1-3 Total Bilirubin 0.60 mg/dL 0.2-1.0 Alkaline Phosphatase 47 U/L 34-104 Alt 20 U/L 7-52 Ast 16 U/L 13-39 Egfr Non- 87.6 >60 Egfr 112.6 >60 16 Lipid Profile 06/01/2015 [facility] Triglycerides 188 mg/dL 17 (Trig/Chol/HDL) [phone] Cholesterol 148 mg/dL 18 HDL Cholesterol 34.5 mg/dL 19 LDL Cholesterol 76 mg/dL 20 Urine DIP 06/01/2015 [facility] Specific [place] 1.01 1.01-1.02 (607)- - Urine pH 5 5-6 Leukocytes NEG Neg Urine Nitrites NEG Neg Total Protein, Urine NEG Neg Urine Glucose NORM Norm Urine Ketones NEG Neg Urobilinogen NORM Norm Urine Bilirubin NEG Neg Urine Blood NEG Neg CBC Auto Diff 05/28/2014 [facility] White Blood 6.1 10^3/uL 4.8-10.8 21 [phone] Count Red Blood Count 5.45 10^6/uL High 4.0-5.4 Hemoglobin 15.1 g/dL 14.0-18.0 Hematocrit 45 % 42-52 Mean Corpuscular Volume 83 fL 80-94 Mean Corpuscular Hemoglobin 28 pg 27-31 Mean Corpuscular HGB Conc 33 g/dL 31-36 Red Cell Distribution Width 14 % 10.5-15 Platelet Count 162 10^3/uL 150-450 Mean Platelet Volume 10 um3 7.4-10.4 Abs Neutrophils 3.6 10^3/uL 1.5-7.7 Abs Lymphocytes 1.4 10^3/uL 1.0-4.8 Abs Monocytes 0.5 10^3/uL 0-0.8 Abs Eosinophils 0.5 10^3/uL 0-0.6 Abs Basophils 0 10^3/uL 0-0.2 Abs Nucleated RBC 0 10^3/uL Granulocyte % 59.4 % 38-83 Lymphocyte % 22.7 % Low 25-47 Monocyte % 9.0 % 1-9 Eosinophil % 8.2 % High 0-6 Basophil % 0.7 % 0-2 Nucleated Red Blood Cells % 0.1 Comp Metabolic Panel 05/28/2014 [facility] Sodium 139 mmol/L 133-145 [phone] Potassium 4.4 mmol/L 3.5-5.0 22 Chloride 104 mmol/L 101-111 Co2 Carbon Dioxide 30 mmol/L 22-32 Anion Gap 5 mmol/L 2-11 Glucose 100 mg/dL 70-100 Blood Urea Nitrogen 15 mg/dL 6-24 Creatinine 0.97 mg/dL 0.67-1.17 BUN/Creatinine Ratio 15.5 8-20 Calcium 9.0 mg/dL 8.6-10.3 Total Protein 6.6 g/dL 6.4-8.9 Albumin 4.5 g/dL 3.2-5.2 Globulin 2.1 g/dL 2-4 Albumin/Globulin Ratio 2.1 1-3 Total Bilirubin 0.60 mg/dL 0.2-1.0 Alkaline Phosphatase 48 U/L 34-104 Alt 33 U/L 7-52 Ast 22 U/L 13-39 Egfr Non- 84.9 >60 Egfr 109.2 >60 23 Lipid Profile 05/28/2014 [facility] Triglycerides 137 mg/dL 24 (Trig/Chol/HDL) [phone] Cholesterol 156 mg/dL 25 HDL Cholesterol 35.8 mg/dL 26 LDL Cholesterol 93 mg/dL 27 Laboratory test 05/28/2014 [facility] TSH (Thyroid 2.12 0.34-5.60 28 finding [phone] Stimulating IU/mL Horm) Urine DIP 05/28/2014 [facility] Specific [place] 1.01 1.01-1.02 (607)- - Urine pH 6 5-6 Leukocytes NEG Neg Urine Nitrites NEG Neg Total Protein, Urine TRACE Neg Urine Glucose NORM Norm Urine Ketones NEG Neg Urobilinogen NORM Norm Urine Bilirubin NEG Neg Urine Blood TRACE Neg Comp Metabolic Panel 05/22/2013 [facility] Sodium 139 mmol/L 133-145 [phone] Potassium 3.8 mmol/L 3.5-5.0 Chloride 104 mmol/L 101-111 Co2 Carbon Dioxide 29.0 mmol/L 22-32 Anion Gap 6.0 mmol/L 2-11 Glucose 92 mg/dL 70-100 Blood Urea Nitrogen 13 mg/dL 6-24 Creatinine 0.90 mg/dL 0.50-1.40 BUN/Creatinine Ratio 14.4 8-20 Calcium 9.0 mg/dL 8.1-9.9 Total Protein 6.2 g/dL 6.2-8.1 Albumin 4.3 g/dL 3.6-5.4 Globulin 1.9 g/dL Low 2-4 Albumin/Globulin Ratio 2.3 1-3 Total Bilirubin 1.2 mg/dL 0.4-1.5 Alkaline Phosphatase 49 U/L 30-110 Alt 32 U/L 14-54 Ast 28 U/L 12-42 Egfr Non- 93.0 >60 Egfr 119.6 >60 29 CBC Auto Diff 05/22/2013 [facility] White Blood 4.8 10^3/uL 4.8-10.8 [phone] Count Red Blood Count 5.38 10^6/uL 4.0-5.4 Hemoglobin 14.8 g/dL 14.0-18.0 Hematocrit 45 % 42-52 Mean Corpuscular Volume 84 fL 80-94 Mean Corpuscular Hemoglobin 28 pg 27-31 Mean Corpuscular HGB Conc 33 g/dL 31-36 Red Cell Distribution Width 14 % 10.5-15 Platelet Count 154 10^3/uL 150-450 Mean Platelet Volume 10 um3 7.4-10.4 Abs Neutrophils 2.7 10^3/uL 1.5-7.7 Abs Lymphocytes 1.2 10^3/uL 1.0-4.8 Abs Monocytes 0.4 10^3/uL 0-0.8 Abs Eosinophils 0.4 10^3/uL 0-0.6 Abs Basophils 0 10^3/uL 0-0.2 Abs Nucleated RBC 0.01 10^3/uL Granulocyte % 56.5 % 38-83 Lymphocyte % 25.6 % 25-47 Monocyte % 8.3 % 1-9 Eosinophil % 8.9 % High 0-6 Basophil % 0.7 % 0-2 Nucleated Red Blood Cells % 0.1 Lipid Profile 05/22/2013 [facility] Triglycerides 179 mg/dL 40-200 (Trig/Chol/HDL) [phone] Cholesterol 158 mg/dL Less than 200 HDL Cholesterol 39 mg/dL Low 40-60 30 Cholesterol/HDL Ratio 4.1 Average 1-4.44 LDL Cholesterol 83.2 Less Than 100 31 Laboratory test 05/22/2013 [facility] Negra (Anti- Nuclear Negative Negative 32 finding [phone] AB) Screen Erythrocyte Sed Rate 5 mm/Hr 0-14 33 C Reactive Protein < 0.5 mg/dL Less than 0.5 34 TSH (Thyroid Stimulating Horm) 2.18 miu/mL 0.34-5.60 35 Urine DIP 05/22/2013 In House Lab Leukocytes NEG Neg (607)- - Urine Nitrites NEG Neg Urine pH 6 5-6 Total Protein, Urine NEG Neg Urine Glucose NORM Norm Urine Ketones NEG Neg Urobilinogen NORM Norm Urine Bilirubin NEG Neg Urine Blood NEG Neg Specific [place] 1.02 1.01-1.02 CBC Auto Diff 07/03/2012 [facility] White Blood 5.7 10^3/uL 4.8-10.8 [phone] Count Red Blood Count 5.42 10^6/uL High 4.0-5.4 Hemoglobin 14.9 g/dL 14.0-18.0 Hematocrit 45 % 42-52 Mean Corpuscular Volume 83 fL 80-94 Mean Corpuscular Hemoglobin 28 pg 27-31 Mean Corpuscular HGB Conc 33 g/dL 31-36 Red Cell Distribution Width 14 % 10.5-15 Platelet Count 156 10^3/uL 150-450 Mean Platelet Volume 10 um3 7.4-10.4 Abs Neutrophils 3.2 10^3/uL 1.5-7.7 Abs Lymphocytes 1.5 10^3/uL 1.0-4.8 Abs Monocytes 0.5 10^3/uL 0-0.8 Abs Eosinophils 0.4 10^3/uL 0-0.6 Abs Basophils 0 10^3/uL 0-0.2 Abs Nucleated RBC 0.01 10^3/uL Granulocyte % 57.1 % 38-83 Lymphocyte % 25.8 % 25-47 Monocyte % 8.8 % 1-9 Eosinophil % 7.5 % High 0-6 Basophil % 0.8 % 0-2 Nucleated Red Blood Cells % 0.1 Comp Metabolic Panel 07/03/2012 [facility] Sodium 138 mmol/L 133-145 [phone] Potassium 3.9 mmol/L 3.5-5.0 Chloride 102 mmol/L 101-111 Co2 Carbon Dioxide 29.0 mmol/L 22-32 Anion Gap 7.0 mmol/L 2-11 Glucose 98 mg/dL 70-100 Blood Urea Nitrogen 11 mg/dL 6-24 Creatinine 1.00 mg/dL 0.50-1.40 BUN/Creatinine Ratio 11.0 8-20 Calcium 9.0 mg/dL 8.1-9.9 Total Protein 6.3 g/dL 6.2-8.1 Albumin 4.4 g/dL 3.6-5.4 Globulin 1.9 g/dL Low 2-4 Albumin/Globulin Ratio 2.3 1-3 Total Bilirubin 0.8 mg/dL 0.4-1.5 Alkaline Phosphatase 47 U/L 30-110 Alt 27 U/L 14-54 Ast 22 U/L 12-42 Egfr Non- 82.8 >60 Egfr 106.4 >60 36 Lipid Profile 07/03/2012 [facility] Triglycerides 136 mg/dL 40-200 (Trig/Chol/HDL) [phone] Cholesterol 156 mg/dL Less than 200 HDL Cholesterol 39 mg/dL Low 40-60 37 Cholesterol/HDL Ratio 4.0 Average 1-4.44 LDL Cholesterol 89.8 mg/dL Less Than 100 38 Urine DIP 07/03/2012 In House Lab Leukocytes NEG Neg (607)- - Urine Nitrites NEG Neg Urine pH 7 High 5-6 Total Protein, Urine NEG Neg Urine Glucose NORM Norm Urine Ketones NEG Neg Urobilinogen NORM Norm Urine Bilirubin NEG Neg Urine Blood NEG Neg Specific [place] NA Low 1.01-1.02 Laboratory test 06/29/2011 [facility] Erythrocyte Sed 4 MM/HR 0-15 finding [phone] Rate C Reactive Protein 0.5 mg/dL Less Than 0.5 Basic Metabolic 06/29/2011 [facility] Sodium 142 mmol /L 135-145 Panel [phone] Potassium 3.8 mmol/L 3.5-5.0 Chloride 103 mmol/L 101-111 Co2 (Carbon Dioxide) 31.0 mmol/L 22-32 Anion Gap 8.0 mmol/L 2-11 39 Glucose 101 mg/dL High 70-100 BUN 12 mg/dL 6-24 Creatinine 1.1 mg/dL 0.50-1.40 One Over Creatinine 0.90 BUN/Creatinine Ratio 10.9 8-20 Calcium 9.6 mg/dL 8.1-9.9 eGFR Non- 74.5 > 60 eGFR 95.8 > 60 40 CBC Auto Diff 06/29/2011 [facility] White Blood 6.0 CUMM 4.8-10.8 [phone] Count Red Cell Count 5.08 CUMM 4.6-6.2 Hemoglobin 14.2 g/dL 14.0-18.0 Hematocrit 42 % 42-52 Mean Corpuscular Volume 82 um3 80-94 Mean Corpuscular Hemoglob 28 pg 27-31 Mean Corpuscular HGB Cone 34 g/dL 32-36 Redcell Distribution WDTH 14 % 10.5-15 Platelet Count 169 CUMM 150-450 Mean Platelet Volume 10.2 um3 7.4-10.4 Gran % 63.7 % 38-83 Lymph % 23.2 % Low 25-47 Mononuclear % 6.2 % 1-9 Eosinophil % 6.5 % High 0-6 Basophil % 0.4 % 0-2 Abs Lymphs 1.4 1.0-4.8 Abs Mononuclear 0.4 0-0.8 Absolute Neutrophil Count 3.8 1.5-7.7 Abs Eosinophils 0.4 0-0.6 Abs Basophils 0 0-0.2 Laboratory 03/30/2011 [facility] Surgical ----- 41 test finding [phone] Pathology <SEE NOTE> Urine DIP 03/11/2011 In House Lab Leukocytes NEG Neg (607)- - Urine Nitrites NEG Neg Urine pH 5-6 5-6 Total Protein, Urine NEG Neg Urine Glucose NORM Norm Urine Ketones NEG Neg Urobilinogen NORM Norm Urine Bilirubin NEG Neg Urine Blood NEG Neg Specific [place] N/A Low 1.01-1.02 Laboratory test 07/15/2009 [facility] Troponin-I (TnI ) 0 NG/ML 42 finding [phone] Basic Metabolic 07/15/2009 [facility] Sodium 138 mmol /L 135-14 Panel Stat [phone] Potassium 3.9 mmol/L 3.5-5.0 Chloride 104 mmol/L 101-111 Co2 (Carbon Dioxide) 28.0 mmol/L 22-32 Anion Gap 6.0 mmol/L 2-11 43 Glucose 114 mg/dL High 70-100 44 BUN 13 mg/dL 6-24 Creatinine 0.90 mg/dL 0.50-1.40 One Over Creatinine 1.10 BUN/Creatinine Ratio 14.4 8-20 Calcium 9.5 mg/dL 8.1-9.9 45 eGFR Non- 100.9 > 60 eGFR 122.1 > 60 46 CBC With 07/15/2009 [facility] White Blood 5.9 CUMM 4.8-10.8 Electronic Diff [phone] Count Stat Red Cell Count 5.56 CUMM 4.6-6.2 Hemoglobin 15.3 g/dL 14.0-18.0 Hematocrit 45 % 42-52 Mean Corpuscular Volume 81 um3 80-94 Mean Corpuscular Hemoglob 28 pg 27-31 Mean Corpuscular HGB Cone 34 g/dL 32-36 Redcell Distribution WDTH 14 % 10.5-15 Platelet Count 188 CUMM 150-450 Mean Platelet Volume 8.8 um3 7.4-10.4 Gran % 62.0 % 38-83 Lymph % 24.2 % Low 25-47 Mononuclear % 6.9 % 1-9 Eosinophil % 6.6 % High 0-6 Basophil % 0.3 % 0-2 Abs Lymphs 1.4 1.0-4.8 Abs Mononuclear 0.4 0-0.8 Absolute Neutrophil Count 3.6 1.5-7.7 Abs Eosinophils 0.4 0-0.6 Abs Basophils 0 0-0.2 Urine DIP 03/12/2009 In House Lab Leukocytes NEG Neg (607)- - Urine Nitrites NEG Neg Urine pH 5 5-6 Total Protein, Urine NEG Neg Urine Glucose NORM Norm Urine Ketones NEG Neg Urobilinogen NORM Norm Urine Bilirubin NEG Neg Urine Blood NEG Neg Specific [place] N/A Low 1.01-1.02 1 Because ethnic data is not always readily available, this report includes an eGFR for both -Americans and non- Americans. The National Kidney Disease Education Program (NKDEP) does not endorse the use of the MDRD equation for patients that are not between the ages of 18 and 70, are , have extremes of body size, muscle mass, or nutritional status, or are non- or non-. According to the National Kidney Foundation, irrespective of diagnosis, the stage of the disease is based on the level of kidney function: Stage Description GFR(mL/min/1.73 m(2)) 1 Kidney damage with normal or decreased GFR 90 2 Kidney damage with mild decrease in GFR 60-89 3 Moderate decrease in GFR 30-59 4 Severe decrease in GFR 15-29 5 Kidney failure <15 (or dialysis) 2 Desirable: <150 Borderline High: 150-199 High: 200-499 Very High: >500 3 Desirable: <200 Borderline High: 200-239 High: >239 4 Low: <40 Desirable: 40-60 High: >60 5 Desirable: <100 Near Optimal: 100-129 Borderline High: 130-159 High: 160-189 Very High: >189 6 [id number] 10 Because ethnic data is not always readily available, this report includes an eGFR for both -Americans and non- Americans. The National Kidney Disease Education Program (NKDEP) does not endorse the use of the MDRD equation for patients that are not between the ages of 18 and 70, are , have extremes of body size, muscle mass, or nutritional status, or are non- or non-. According to the National Kidney Foundation, irrespective of diagnosis, the stage of the disease is based on the level of kidney function: Stage Description GFR(mL/min/1.73 m(2)) 1 Kidney damage with normal or decreased GFR 90 2 Kidney damage with mild decrease in GFR 60-89 3 Moderate decrease in GFR 30-59 4 Severe decrease in GFR 15-29 5 Kidney failure <15 (or dialysis) 11 Desirable <150 Borderline high 150-199 High 200-499 Very High >500 12 Desirable <200 Borderline high 200-239 High >239 13 Low <40 Desirable: 40-60 High: >60 14 Desirable: <100 mg/dL Near Optimal: 100-129 mg/dL Borderline High: 130-159 mg/dL High: 160-189 mg/dL Very High: >189 mg/dL 15 Serum levels of PSA measured using the [employer] Hybritech immunoassay should not be interpreted as absolute evidence of the presence or absence of disease. The PSA value should be used in conjunction with other pertinent clinical diagnostic procedures. A PSA value in the range of 0.1 to 0.6 ng/ml is indeterminate if being used as an indicator of recurrent or residual disease. The values obtained with different assay methods or kits cannot be used interchangeably. 16 Because ethnic data is not always readily available, this report includes an eGFR for both -Americans and non- Americans. The National Kidney Disease Education Program (NKDEP) does not endorse the use of the MDRD equation for patients that are not between the ages of 18 and 70, are , have extremes of body size, muscle mass, or nutritional status, or are non- or non-. According to the National Kidney Foundation, irrespective of diagnosis, the stage of the disease is based on the level of kidney function: Stage Description GFR(mL/min/1.73 m(2)) 1 Kidney damage with normal or decreased GFR 90 2 Kidney damage with mild decrease in GFR 60-89 3 Moderate decrease in GFR 30-59 4 Severe decrease in GFR 15-29 5 Kidney failure <15 (or dialysis) 17 Desirable <150 Borderline high 150-199 High 200-499 Very High >500 18 Desirable <200 Borderline high 200-239 High >239 19 Low <40 Desirable: 40-60 High: >60 20 Desirable: <100 mg/dL Near Optimal: 100-129 mg/dL Borderline High: 130-159 mg/dL High: 160-189 mg/dL Very High: >189 mg/dL 21 FASTING 22 Potassium reference range changed effective 05/25/14 23 Because ethnic data is not always readily available, this report includes an eGFR for both -Americans and non- Americans. The National Kidney Disease Education Program (NKDEP) does not endorse the use of the MDRD equation for patients that are not between the ages of 18 and 70, are , have extremes of body size, muscle mass, or nutritional status, or are non- or non-. According to the National Kidney Foundation, irrespective of diagnosis, the stage of the disease is based on the level of kidney function: Stage Description GFR(mL/min/1.73 m(2)) 1 Kidney damage with normal or decreased GFR 90 2 Kidney damage with mild decrease in GFR 60-89 3 Moderate decrease in GFR 30-59 4 Severe decrease in GFR 15-29 5 Kidney failure <15 (or dialysis) 24 Desirable <150 Borderline high 150-199 High 200-499 Very High >500 25 Desirable <200 Borderline high 200-239 High >239 26 Low <40 Desirable: 40-60 High: >60 27 Desirable <100 Near Optimal 100-129 Borderline high 130-159 High 160-189 Very High >189 28 FASTING 29 Because ethnic data is not always readily available, this report includes an eGFR for both -Americans and non- Americans. The National Kidney Disease Education Program (NKDEP) does not endorse the use of the MDRD equation for patients that are not between the ages of 18 and 70, are , have extremes of body size, muscle mass, or nutritional status, or are non- or non-. According to the National Kidney Foundation, irrespective of diagnosis, the stage of the disease is based on the level of kidney function: Stage Description GFR(mL/min/1.73 m(2)) 1 Kidney damage with normal or decreased GFR 90 2 Kidney damage with mild decrease in GFR 60-89 3 Moderate decrease in GFR 30-59 4 Severe decrease in GFR 15-29 5 Kidney failure <15 (or dialysis) 30 HDL Interpretation: Undesirable: High Risk: Less than 40 mg/dL Desirable: Low Risk: Greater than 60 mg/dL 31 LDL Interpretation: Low Risk Optimal Level: LDL Less than 100 mg/dL Near or Above Optimal: LDL 100-129 mg/dL Borderline High Risk: LDL 130-159 mg/dL High Risk: LDL 160-189 mg/dL Very High Risk: LDL Greater than 189 mg/dL 32 FASTING 33 FASTING 34 FASTING 35 FASTING 36 Because ethnic data is not always readily available, this report includes an eGFR for both -Americans and non- Americans. The National Kidney Disease Education Program (NKDEP) does not endorse the use of the MDRD equation for patients that are not between the ages of 18 and 70, are , have extremes of body size, muscle mass, or nutritional status, or are non- or non-. According to the National Kidney Foundation, irrespective of diagnosis, the stage of the disease is based on the level of kidney function: Stage Description GFR(mL/min/1.73 m(2)) 1 Kidney damage with normal or decreased GFR 90 2 Kidney damage with mild decrease in GFR 60-89 3 Moderate decrease in GFR 30-59 4 Severe decrease in GFR 15-29 5 Kidney failure <15 (or dialysis) 37 HDL Interpretation: Undesirable: High Risk: Less than 40 MG/DL Desirable: Low Risk: Greater than 60 MG/DL 38 LDL Interpretation: Low Risk Optimal Level: LDL Less than 100 MG/DL Near or Above Optimal: LDL 100-129 MG/DL Borderline High Risk: LDL 130-159 MG/DL High Risk: LDL 160-189 MG/DL Very High Risk: LDL Greater than 189 MG/DL 39 Anion gap measurement may be of limited value in the presence of any alkalosis, especially in a combined acid base disorder. . 40 Because ethnic data is not always readily available, this report includes an eGFR for both -Americans and non- Americans. The National Kidney Disease Education Program (NKDEP) does not endorse the use of the MDRD equation for patients that are not between the ages of 18 and 70, are , have extremes of body size, muscle mass, or nutritional status, or are non- or non-. According to the National Kidney Foundation, irrespective of diagnosis, the stage of the disease is based on the level of kidney function: Stage Description GFR(mL/min/1.73 m(2)) 1 Kidney damage with normal or decreased GFR 90 2 Kidney damage with mild decrease in GFR 60-89 3 Moderate decrease in GFR 30-59 4 Severe decrease in GFR 15-29 5 Kidney failure <15 (or dialysis) 41 ---- RUN DATE: 04[facility]01[facility]11 [facility] TIME: 1153 Specimen Inquiry RUN USER: INTERFACE -- Name: KENIA CALLAWAY Status: REG REF Re03/30/11 Age/Sex: 40/M Unit#: [id number] Location: [facility] : [birth year] -- Specimen: [id number] Spec Date: 03/30/[address]: Kori parrish NP Spec Type: SURGICAL P Received: 03/31/11 Copies to: SPECIMEN SCROTAL CYST RIGHT HISTORY PRE-OP DIAGNOSIS: Scrotal cyst GROSS DESCRIPTION The specimen is received in formalin labelled Kenia Callaway, and consists of two nodular fragments, one measuring 0.7 x 0.6 x 0.5 cm. and the other measuring 0.5 x 0.3 x 0.2 cm. The larger segment is bisected. Both are submitted entirely, one cassette. 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 Signed Electronically by: JUSTINE GONZALEZ 04/01/11 1153 -- -- DEPARTMENT OF PATHOLOGY, [address] [place] [address] [facility] Permit #[id number] Jh Birmingham M.D. Director Justine Gonzalez M.D. Administrative Services Director Dir michael -- 42 New Reference Range and Interpretation effective 04/26/2002 TnI (ng/ml) INTERPRETATION Less Than 0.06 ng/mL NOT SUPPORTIVE OF DIAGNOSIS OF [place] 0.06 - 0.50 ng/ml INDETERMINATE: SUGGEST SERIAL STUDIES IF CLINICALLY INDICATED. Greater than 0.5 ng/mL CONSISTENT WITH DIAGNOSIS OF [place] . 43 Anion gap measurement may be of limited value in the presence of any alkalosis, especially in a combined acid base disorder. . 44 Note change in reference range as of 03/13/08. The change was based on recommendations from the [place] [employer]. 45 Please note change in reference range effective 07 . 46 Because ethnic data is not always readily available, this report includes an eGFR for both -Americans and non- Americans. The National Kidney Disease Education Program (NKDEP) does not endorse the use of the MDRD equation for patients that are not between the ages of 18 and 70, are , have extremes of body size, muscle mass, or nutritional status, or are non- or non-. According to the National Kidney Foundation, irrespective of diagnosis, the stage of the disease is based on the level of kidney function: Stage Description GFR(mL/min/1.73 m(2)) 1 Kidney damage with normal or decreased GFR 90 2 Kidney damage with mild decrease in GFR 60-89 3 Moderate decrease in GFR 30-59 4 Severe decrease in GFR 15-29 5 Kidney failure <15 (or dialysis) Procedures Date Code Description Status 03/30/2011 99244 Excision Lesion 0.6 To 1.0 CM Completed 03/30/2011 29101 Excision Lesion 0.6 To 1.0 CM Completed 03/30/2011 76449 Excision Of Lesion(Scalp,Hand,FT) Completed 03/11/2011 53892 Spirometry Completed 03/11/2011 77408 EKG, at Least 12 Leads w/Interpretation and Report Completed 03/12/2009 72414 Spirometry Completed Encounters Type Date Location Provider Dx Diagnosis Office Visit 08/11/2017 Main Office Kori Acevedo, Z00.00 Encntr for general 8:45a [employer] adult medical exam w/o abnormal findings Office Visit 01/23/2017 Main Office Dharmesh Juarez, S46.202A Unsp injury of 4:15p MD marcial/fasc/tend prt biceps, left arm, init Office Visit 08/10/2016 Main Office Brayden Sanchez Essential (primary ) 8:45a [employer] hypertension Office Visit 07/26/2016 Main Office Brayden Sanchez Essential (primary ) 9:45a [employer] hypertension R63.5 Abnormal weight gain Office Visit 06/07/2016 8:00a Main Office Kori Acevedo Z00.00 Encntr for [employer] general adult medical exam w/o abnormal findings I10 Essential (primary) hypertension Z12.5 Encounter for screening for malignant neoplasm of prostate Office Visit 03/30/2016 3:45p Main Office Kori Acevedo, R20.2 Paresthesia of skin [employer] I10 Essential (primary) hypertension Office Visit 01/19/2016 3:30p Main Office Jm Floyd L03.011 Cellulitis of III, [employer] right finger Z23 Encounter for immunization Office Visit 08/03/2015 9:45a Main Office Brayden Sanchez Essential ( primary) [employer] hypertension Office Visit 07/01/2015 8:45a Main Office Brayden Sanchez Essential ( primary) [employer] hypertension Office Visit 06/01/2015 1:30p Main Office Kori Acevedo Z00.00 Encntr for general [employer] adult medical exam w/o abnormal findings I10 Essential (primary) hypertension Office Visit 05/28/2014 8:00a Main Office Kori Acevedo V70.0 Examination General [employer] Medical Routine AT Health Care Facility V17.49 Family HX Of Other Cardiovascular Diseases V18.19 Family HX Of Other Endocrine And Metabolic Disease Office Visit 05/22/2013 8:00a Main Office Kori Acevedo V70.0 Examination General [employer] Medical Routine AT Health Care Facility V17.49 Family HX Of Other Cardiovascular Diseases 379.91 Pain In Or Around Eye V18.19 Family HX Of Other Endocrine And Metabolic Disease 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.39 Optic Neuritis Other Office Visit 07/03/2012 8:00a Main Office Kori Acevedo V70.0 Examination General [employer] Medical Routine AT Health Care Facility V17.49 Family HX Of Other Cardiovascular Diseases Office Visit 06/29/2011 2:45p Main Office Sherry Carrington 379.91 Pain In Or Around Enriqueta Guzmán Eye Office Visit 03/11/2011 8:00a Main Office Kori Acevedo, V70.0 Examination [employer] General Medical Routine AT Health Care Facility Office Visit 12/28/2010 9:30a Main Office Julian Aguila, 847.1 Sprains & Strains [employer] Thoracic Office Visit 12/24/2010 3:00p Main Office Julian Aguila, 847.1 Sprains & Strains [employer] Thoracic 847.1 Sprains & Strains Thoracic Office Visit 07/23/2009 8:00a Main Office Julian Aguila, 840.8 Sprains & Strains [employer] Shoulder & Upper Arm Other Spec Sites Office Visit 07/20/2009 9:15a Main Office Julian Aguila, 840.8 Sprains & Strains [employer] Shoulder & Upper Arm Other Spec Sites 840.8 Sprains & Strains Shoulder & Upper Arm Other Spec Sites Office Visit 03/12/2009 1:30p Main Office Julian Levy V70.0 Examination General Storm, [employer] Medical Routine AT Health Care Facility Office Visit 12/10/2007 8:45a Main Office Julian Levy 372.03 Conjunctivitis Storm, [employer] Mucopurulent Other Plan of Treatment Future Appointment(s):08/21/2018 9:30 am - Simi Manzo NP at Main [id number] 10:15 am - Simi Manzo NP at Main [id number]/19/2018 - Simi Manzo [id number] Essential (primary) hypertensionFollow up:.Recommendations:High blood pressure is a condition that puts you at risk for heart attack, stroke, and kidney disease. It does not usually cause symptoms. But it can be serious. When your doctor or nurse tells you your blood pressure, he or she will say 2 numbers. For instance, your doctor or nurse might say that your blood pressure is "140 over 90." The top number is the pressure inside your arteries when your heart is tiesha. The bottom number is the pressure inside your arteries when your heart is relaxed. If your doctor or nurse has prescribed blood pressure medicine, the most important thing you can dois to take it. If it causes side effects, do not just stop taking it. Instead, talk to your doctor about the problems it causes. He or she might be able to lower your dose or switch you to another medicine. If cost is a problem, mention that too. He or she might be able to put you on a less expensive medicine. Taking your blood pressure medicine can keep you from having a heart attack or stroke, and it can save your life! You have a lot of control over your blood pressure. To lower it : -Lose weight(if you are overweight) -Choose a diet low in fat and rich in fruits, vegetables, and low-fat dairy products -Reduce the amount of salt you eat -Do something active for at least 30 minutes a day on most days of the week -Cut down on alcohol (if you drink more than 2 alcoholic drinks per day) It's alsoa good idea to get a home blood pressure meter. People who check their own blood pressure at home dobetter at keeping it low and can sometimes even reduce the amount of medicine they take.
--- OUTSIDE RECORDS SUMMARY | 2018-06-28 23:49 | XMS REPORT | Continuity of Care Document ---
:1970 External Reference #:[id number] Author Name Mendoza Silva M.D. Address [address] [place] [address] Care Team Providers Name Role Phone Marquis Moreno M.D. Primary Care Physician Unavailable Payers Type Date Identification Numbers Payment Provider Subscriber Policy Number: [id number] [facility] Nick Fernandez PayID: [id number] [address] [address] [place] [address] Advance Directives Description No Information Available Problems Date Description Provider Status Onset: Essential hypertension Active Onset: 05/22/2018 Retinal edema Mendoza Silva M.D. 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 ETOH Use Occasionally consumes alcohol Tobacco Use Start: Unknown Patient has never smoked Recreational Drug Use Denies Drug Use Smoking Status Reviewed: 06/21/18 Patient has never smoked Allergies, Adverse Reactions, Alerts Date Description Reaction Status Severity Comments 05/22/2018 Penicillin Active Medications Medication Date Status Form Strength Qnty SIG Indications Ordering Provider Losartan Active Tablets 25mg Take One Unknown Potassium 00 Tablet By Mouth Every Day Valacyclovir HCL Active Tablets 500mg Take One Unknown 00 Tablet By Mouth Twice A Day as Needed Immunizations Description No Information Available Vital Signs Description No Information Available Results Description No Information Available Procedures Date Code Description Status 05/22/2018 51617 Scanning Computerized Opthalmic Diagnostic Posterior Seg Completed Retina 05/22/2018 11828 New Patient Comprehensive Exam Completed 07/21/2011 93458 Visual Field Exam Extended Completed 07/12/2011 18543 Scanning Computerized Opthalmic Diagnostic Posterior Seg Completed Retina 06/30/2011 48567 New Patient Comprehensive Exam Completed Encounters Type Date Location Provider Dx Diagnosis Office Visit 07/12/2011 Kristian Hawkins, 368.16 Visual Disturbance 9:00a , rylee Robison Psychophysical Plan of Treatment 06/21/2018 - Mendoza Silva M.D.H35.712 Central serous chorioretinopathy, left eyeComments:Smoking can increase the risk of developing or worsening any eye related disease, as well as affect your overall health. If you are a smoker , we strongly recommend that you quit.If you are not a smoker, we strongly recommend that you do not start. THE EYE IS DOING BETTER. CALL IF THE SYMPTOMS RETURN.AVOID STEROID MEDICATIONSFollow up:4 Month Follow Up OCT MAC You can expect to have your eyes dilated at your next visit. If Dr. Silva orders any additional testing, it may require extra time. We recommend that you bring sunglasses,as dilation drops often make you light sensitive until they wear off. We always recommend you bring someone to drive you home if you are uncomfortable driving with your eyes dilated. If you have any questions before your next visit, feel free to call our office at .
[2018-06-29] MEDS ORDERED: fentaNYL* 50 MCG/ML 2 ML VIAL (100 MCG VIAL) ONE ×10 (01:45→11:49)
[2018-06-29] MEDS ORDERED: Metoclopramide IV* 5 MG/ML 2 ML VIAL ONE (01:45)
--- NOTE | 2018-06-29 01:52 | ED ---
Upper Extremity Pain - HPI Summary HPI Summary: This patient is a 47 year old MF presenting to [facility] accompanied by with a chief complaint of L arm pain that began after surgery yesterday. The patient rates the pain 10/10 in severity. Symptoms aggravated by movement. Symptoms alleviated by nothing. Patient reports that he had surgery, nerve release, on his left elbow yesterday. Patient states he did not receive a local block for the procedure. - History of Current Complaint Chief Complaint: EDExtremityUpper Stated Complaint: LT ARM PAIN/POST OP Time Seen by Provider: 06/29/18 00:06 Hx Obtained From: Patient Onset/Duration: Started Hours Ago, Still Present Timing: Constant Severity Initially: Severe Severity Currently: Severe Pain Location: Elbow Aggravating Factor(s): Movement Alleviating Factor(s): Nothing - Allergies/Home Medications Allergies/Adverse Reactions: Allergies Allergy/AdvReac Type Severity Reaction Status Date / Time MS Penicillins [Penicillins] Allergy Hives Verified 06/28/18 13:23 PMH/Surg Hx/FS Hx/Imm Hx Previously Healthy: No Endocrine/Hematology History: Denies: Hx Diabetes Cardiovascular History: Reports: Hx Hypertension - controlled with medications Denies: Hx Pacemaker/ICD Respiratory History: Denies: Hx Asthma History: Denies: Hx Dialysis, Hx Renal Disease Musculoskeletal History: Denies: Other Musculoskeletal History - LEFT ELBOW BICEPS RUPTURE Sensory History: Reports: Hx Contacts or Glasses - GLASSES Denies: Hx Hearing Aid Opthamlomology History: Reports: Hx Contacts or Glasses - GLASSES Psychiatric History: Denies: Hx Panic Disorder - Surgical History Surgery Procedure, Year, and Place: 1991 LEFT SHOULDER RECONSTRUCTION, [facility],. right carpel tunnel 2016. LEFT ELBOW 2017-RUPTURED BICEP Hx Anesthesia Reactions: No Infectious Disease History: No Infectious Disease History: Denies: Traveled Outside the [place] in Last 30 Days - Family History Known Family History: Positive: Other - Negative anesthesia reaction - Social History Occupation: Employed Full-time Lives: With Family Alcohol Use: Occasionally Alcohol Amount: 1-2 drinks a week Hx Substance Use: No Substance Use Type: Reports: None Hx Tobacco Use: No Smoking Status (MU): Never Smoked Tobacco Have You Smoked in the Last Year: No Review of Systems Negative: Fever Positive: Other - Positive L elbow pain All Other Systems Reviewed And Are Negative: Yes Physical Exam - Summary Physical Exam Summary: VITAL SIGNS: Reviewed. GENERAL: Patient is a well-developed and nourished male who is lying comfortable in the stretcher. Patient is not in any acute respiratory distress. HEAD AND FACE: No signs of trauma. No ecchymosis, hematomas or skull depressions. No sinus tenderness. EYES: PERRLA, EOMI x 2, No injected conjunctiva, no nystagmus. EARS: Hearing grossly intact. Ear canals and tympanic membranes are within normal limits. MOUTH: Oropharynx within normal limits. NECK: Supple, trachea is midline, no adenopathy, no JVD, no carotid bruit, no c- spine tenderness, neck with full ROM. CHEST: Symmetric, no tenderness at palpation LUNGS: Clear to auscultation bilaterally. No wheezing or crackles. CVS: Regular rate and rhythm, S1 and S2 present, no murmurs or gallops appreciated. ABDOMEN: Soft, non-tender. No signs of distention. No rebound no guarding, and no masses palpated. Bowel sounds are normal. EXTREMITIES: FROM in all major joints, no cyanosis or clubbing. I did remove the dressing, steri-strips in the antecubital fossa they look intact. No bleeding, no oozing. Left arm is swollen, tense, tender from the distal upper arm to the hand. Unable to feel radial or ulnar pulsation because of swelling/ pain. Swelling of hand and delayed capillary refill. Sensation intact NEURO: Alert and oriented x 3. No acute neurological deficits. Speech is normal and follows commands. SKIN: Dry and warm Triage Information Reviewed: Yes Vital Signs On Initial Exam: Initial Vitals Temp Pulse Resp BP Pulse Ox 98.7 F 99 15 158/113 98 06/28/18 23:39 06/28/18 23:39 06/28/18 23:39 06/28/18 23:39 06/28/18 23:39 Vital Signs Reviewed: Yes Diagnostics - Vital Signs Vital Signs Temp Pulse Resp BP Pulse Ox 06/28/18 23:57 15 06/28/18 23:39 98.7 F 99 15 158/113 98 - Laboratory Result Diagrams: 06/29/18 02:03 06/29/18 02:03 Lab Statement: Any lab studies that have been ordered have been reviewed, and results considered in the medical decision making process. Course/Dx - Course Course Of Treatment: This patient is a 47 year old MF presenting to [facility] accompanied by with a chief complaint of L arm pain that began after surgery yesterday. Physical Exam Findings: I did remove the dressing, steri- strips in the antecubital fossa they look intact. No bleeding, no oozing. Left arm is swollen, tense, tender from the distal upper arm to the hand. Unable to feel radial or ulnar pulsation because of swelling/pain. Swelling of hand and delayed capillary refill. Sensation intact. Bloodwork obtained. In the ED course the patient was given fentanyl, hydromorphone, fluids, and Reglan. Consult with Dr. Hobson (orthopedics) at 0150. He agrees to see the patient in the ED. Consult with Dr. Hobson (orthopedics) at 0255. He will admit patient to the OR. The patient is agreeable with this plan. - Diagnoses Provider Diagnoses: Compartment syndrome - Physician Notifications Discussed Care of Patient With: Anant Mullins Time Discussed With Above Provider: 01:50 Discharge - Sign-Out/Discharge Documenting (check all that apply): Patient Departure - Admit to OR - Discharge Plan Condition: Stable Disposition: ADMITTED TO [facility] Referrals: Marquis Moreno MD [Primary Care Provider] - - Attestation Statements Document Initiated by Scribe: Yes Documenting Scribe: Cecy Mora Provider For Whom Mercedezibkim is Documenting (Include Credential): Dr. Tripp Trinidad MD Scribe Attestation: Cecy Kaye, scribed for Dr. Tripp Trinidad MD on 06/29/18 at 0254. Status of Scribe Document: Ready
[2018-06-29] MEDS ORDERED: Metoclopramide IV* 5 MG/ML 2 ML VIAL IV SLOW PU ONE (01:55)
[2018-06-29] MEDS ORDERED: NS 0.9% 1000 ML* 1,000 ML IV ONE (01:55)
[2018-06-29] MEDS ORDERED: fentaNYL* 50 MCG/ML 2 ML VIAL (100 MCG VIAL) IV SLOW PU ONE (01:55)
[2018-06-29 02:10] LABS: ABS Basophils 0 10^3/ul (0-0.2); ABS Eosinophils 0 10^3/ul (0-0.6); ABS Lymphocytes 0.6 10^3/ul (1.0-4.8); ABS Monocytes 0.4 10^3/ul (0-0.8); ABS Nucleated RBC 0 10^3/ul; Eosinophil % 0.1 %; Hematocrit 41 % (42-52); Lymphocyte % 6.1 %; Mean Corpuscular HGB Conc 34 g/dl (31-36); Mean Corpuscular Hemoglobin 28 pg (27-31); Mean Corpuscular Volume 83 fL (80-94); Mean Platelet Volume 9.1 fL (7.4-10.4); Nucleated Red Blood Cells % 0.1; Platelet Count 165 10^3/ul (150-450); Red Blood Count 4.93 10^6/ul (4.00-5.40); Red Cell Distribution Width 14 % (10.5-15)
[2018-06-29 02:28] LABS: Albumin 4.4 g/dL (3.2-5.2); Albumin/Globulin Ratio 1.8 (1-3); BUN/Creatinine Ratio 16.2 (8-20); C Reactive Protein 6.4 mg/L (<8.01); Calcium 9.3 mg/dL (8.6-10.3); EGFR Non-African American 81.4 (>60); Globulin 2.4 g/dL (2-4); Potassium 4.3 mmol/L (3.5-5.0); Total Bilirubin 0.5 mg/dL (0.2-1.0); Total Protein 6.8 g/dL (6.4-8.9)
[2018-06-29 02:33] LABS: Activated Partial Thrombo Time 31.5 seconds (26.0-36.3); INR 1.02 (0.77-1.02)
[2018-06-29] MEDS ORDERED: HYDROmorphone INJ1* 1 MG/ML SYRINGE ONE ×6 (02:42→11:03)
[2018-06-29] MEDS ORDERED: HYDROmorphone INJ1* 1 MG/ML SYRINGE IV SLOW PU ONE (02:43)
[2018-06-29] MEDS ORDERED: Dexamethasone IV* 4 MG/ML 1 ML (4 MG) ONE (03:25)
[2018-06-29] MEDS ORDERED: Ketorolac INJ* 30 MG/ML 1 ML VIAL ONE (03:25)
[2018-06-29] MEDS ORDERED: Propofol* 10 MG/ML 20 ML BTL ONE ×2 (03:25→06:32)
[2018-06-29] MEDS ORDERED: Ondansetron INJ* 2 MG/ML VIAL ONE (03:25)
[2018-06-29] MEDS ORDERED: Lidocaine 2% PF * 5 ML VIAL ONE ×2 (03:25→06:32)
[2018-06-29] MEDS ORDERED: Cisatracurium* 2 MG/ML MDV 5 ML ONE (03:26)
[2018-06-29] MEDS ORDERED: Midazolam* 1 MG/ML 5 ML VIAL (5 MG) ONE (03:26)
[2018-06-29] MEDS ORDERED: Clindamycin 900 MG/D5W BAG(*) 900 MG/50 ML BAG IVPB ONE (03:47)
[2018-06-29] MEDS ORDERED: EPHEDrine (Pressors)* 50 MG/ML VIAL ONE ×2 (04:46→07:09)
[2018-06-29] MEDS ORDERED: Ondansetron INJ* 2 MG/ML VIAL IV PRN ×2 (05:46→07:29)
[2018-06-29] MEDS ORDERED: Naloxone* 0.4 MG/ML 1 ML VIAL IV PRN ×2 (05:46→07:29)
[2018-06-29] MEDS: HYDROmorphone INJ1* 1 MG/ML SYRINGE IV PRN ×4 (05:48→10:24)
[2018-06-29] MEDS: fentaNYL* 50 MCG/ML 2 ML VIAL (100 MCG VIAL) IV PRN ×8 (06:00→10:40)
[2018-06-29] MEDS ORDERED: KETAMINE HCL* 50 MG/ML 10 ML VIAL ONE (06:32)
[2018-06-29] MEDS ORDERED: Bupivacaine 0.25% W/EPI* 10 ML SDV ONE (06:45)
--- NOTE | 2018-06-29 07:40 | OP ---
DATE OF OPERATION: 06/28/18 - [facility] DATE OF : 72 SURGEON: Abraham Holcomb MD LEAD ASSEMBLER: DARRION Blank. An assistant production editor was needed for the entirety of the procedure to aid in positioning of the arm and retraction. ANESTHESIOLOGIST: Dr. Ruby. ANESTHESIA: General. PRE-OP DIAGNOSES: 1. Left elbow distal biceps tendinitis status post distal biceps tendon repair over a year ago. 2. Left median nerve compression in the proximal forearm. POST-OP DIAGNOSES: 1. Left elbow distal biceps tendinitis status post distal biceps tendon repair over a year ago. 2. Left median nerve compression in the proximal forearm. OPERATIVE PROCEDURE: 1. Left elbow median nerve decompression at the forearm with AxoGuard nerve wrapping. 2. Left distal biceps tendon debridement and tenolysis. INDICATIONS: Nick had the distal biceps tendon repair, initially did very well and the arm was doing great. As time has gone on, he has developed significant median nerve compression in the proximal forearm with activity and with use of the arm. He has already undergone carpal tunnel release previously and done very well from that. The area over the median nerve of the forearm is very tender, there is a very positive Tinel's there. Additionally, I was concerned about some radial nerve compression to the radial tunnel. I talked to Nick about risks and benefits. He wanted to proceed with surgery. ESTIMATED BLOOD LOSS: 2 mL. COMPLICATIONS: None. FINDINGS: See above and below. DESCRIPTION OF PROCEDURE: Nick was seen in the preoperative holding area. The correct site, side, and procedure were identified. We came back to the operating room where the arm was prepped and draped in the usual fashion. A time-out was performed. The arm was exsanguinated with the Esmarch and the tourniquet was inflated to 275 mmHg. I then made a lazy S-shaped incision with the transverse limb in the antecubital fossa. Dissection was carried down, the lateral antebrachial cutaneous nerve was identified and protected. This was mobilized and retracted laterally. I brought the distal limb of the incision down laterally in anticipation of potentially doing a radial nerve decompression. Dissection was carried down and the traversing subcutaneous veins were mobilized, I did have to tie off one, and once they were retracted out of the way, I encountered a dense scar tissue in the area where the lacertus fibrosus would be. This was many millimeters thick and extremely dense scar tissue which was then enveloping most of the biceps tendon at the musculotendinous junction. The scar tissue was thick, dense and extended all the way down to the biceps tendon insertion. I took some time to meticulously release the thickened scar at the lacertus fibrosus which was I think the source of the compression in the median nerve. This matted scar tissue was excised in its entirety. I then came more deeply and had to ligate a couple of veins traversing over the median nerve as I began exposure to the median nerve and was seen just medial and deep to the brachial artery. Full neurolysis was performed down through the 2 heads of the FCU and I released the leading edge of the FDS muscle. Meticulous hemostasis was obtained with a bipolar cautery throughout the decompression. I came proximally and distally and ensured that there was no compression on the nerve. Ultimately, this all ended up taking much longer than normal given the extensive scar tissue. I then placed an AxoGuard nerve wrap 7 x 40 mm around the nerve under the area where the lacertus fibrosus had been. This was secured proximally and distally with a 6-0 Prolene suture, and once in the middle, taking great care not to sew the wrap to the underlying nerve. The wrap was mobile over the nerve after all the sutures were placed. I then turned my attention to the distal biceps tendon, it was encased in a large amount of scar tissue. I started proximally and released and worked very slowly, going down distally to where it inserted on to the radial tuberosity, a couple of veins were tied off. I was actually able to preserve the radial collateral artery. Tenolysis took an hour to perform. Ultimately, I was able to trim away all the scar tissue until nothing but healthy tendon remained, there was a significant amount of scar tissue that was excised. At this point, when I would pull on the tendon, it would flex the elbow and supinate the forearm, which it had not done prior to the tenolysis. Everything was looking very nice and nicely decompressed. At this point, we were already 1 hour and 45 minutes into the surgery. I had planned to decompress the radial nerve; however, I thought this was the least important of the problems and I was also concerned that given the dense amount of scar tissue, it would be somewhat unsafe to decompress the radial nerve at the current time. I, therefore, decided that we would stop at this point, so we irrigated out the wound. Hemostasis was checked. The subcutaneous tissue was reapproximated with 3-0 Vicryl, the skin was closed with 3-0 Monocryl suture and Steri-Strips. A 0.25% Marcaine was infiltrated all around the operative area. The wounds were dressed, tourniquet was deflated. The hand pinked up immediately. He was woken up and taken to the recovery room where he was able to open and close the hand nicely. [id number]/CPS #: [id number] MTDD
[2018-06-29] MEDS ORDERED: ceFAZolin 2 GM PREMIX in ORs 2 GM/50 ML BAG IVPB ONE (08:52)
[2018-06-29] MEDS: ceFAZolin 2 GM PREMIX in ORs 2 GM/50 ML BAG IVPB SCH ×2 (08:58→17:14)
[2018-06-29] MEDS: oxyCODONE/Acetamin 5/325 MG* TAB PO PRN ×4 (10:00→22:21)
[2018-06-29] MEDS ORDERED: oxyCODONE/Acetamin 5/325 MG* TAB ONE (10:00)
[2018-06-29] MEDS ORDERED: Gabapentin CAP(*) 300 MG ONE ×2 (10:31→11:03)
[2018-06-29] MEDS ORDERED: Morphine VIAL* 4 MG/ML VIAL (1 ml vial) ONE ×2 (10:47→13:02)
[2018-06-29] MEDS ORDERED: Diazepam TAB(*) 5 MG ONE (11:49)
[2018-06-29] MEDS ORDERED: Morphine VIAL* 4 MG/ML VIAL (1 ml vial) IV ONE (13:00)
--- NOTE | 2018-06-29 13:19 | PN ---
Progress Note - Progress Note Date of Service: 06/29/18 Note: I was called to the operating room early this morning due to Nick being brought back to the operating room for a needed compartment release by Dr. Mullins. The wound vac had significant bleeding into it shortly after being brought back to the PACU and so he was taken back to check for hemostasis. When I arrived Dr. Mullins had already obtained hemostasis by ligating a perforating branch off the brachial artery proximal to the antecubital area. The wound was dry upon me arriving. I checked again to make sure there was no significant bleeding and then we closed up the wound proximally and distally and placed a wound vac centrally. Nick has had significant pain throughout the day today. I have had my partner Dr. Smith and our PA Tameka Rand check on Nick multiple times throughout the day while I was in clinic in [place]. The arm has remained soft with good dopplerable pulses distally. Dr. Oshea with pain management has seen Nick as well. On exam tonight the arm is soft and very compressible. The vac has had just a small amount of serosanguinous drainage throughout the day although it is still actively having drainage. The finger are moving although with some pain. A/P: POD#0 s/p compartment release left forearm. Plan to recheck arm in the AM. I encouraged range of motion in the fingers. The elbow is splinted at the current time. Ancef until the wound is closed. Wound vac also.
[2018-06-29] MEDS ORDERED: Diazepam TAB(*) 5 MG PO PRN (13:54)
[2018-06-29] MEDS: Ketorolac INJ* 30 MG/ML 1 ML VIAL IV PUSH PRN ×2 (13:58→20:00)
[2018-06-29] MEDS ORDERED: HYDROmorphone PCA* 20 MG/20 ML PCA.SYRING PCA SCH (14:00)
--- NOTE | 2018-06-29 14:00 | PN ---
Progress Note - Progress Note Date of Service: 06/29/18 Note: Re evaluated patient due to increased pain. Pain in volar forearm at the site of his compartment release. Dressings taken down further and splint removed. moderate to severe edema forearm but compartments are soft. hand is well perfused, able to extend fingers slowly and attempts to make a fist with exacerbated forearm pain. cap refill less than 2 seconds. Mild paresthesia at tips of index and long fingers. hyperesthesia at tip of thumb. Radial pulse auscultated with hand help doppler. Wound vac with small amount of drainage, less than 100cc DEMO COORDINATOR started along with Valium, Toradol and Gabapentin
[2018-06-29] MEDS ORDERED: HYDROmorphone PCA* 20 MG/20 ML PCA.SYRING ONE (14:06)
--- NOTE | 2018-06-29 14:09 | CONSULT ---
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 Holcomb. He reports that when he got home, he had acute worsening of pain in his left forearm. He reports that this is by far the worst pain he has ever experienced in his life. He took pain medication without any relief, so presented to the emergency room. In the emergency room he had multiple doses of fentanyl, and I a lot of without any relief. The emergency room physician was concerned for compartment syndrome , so I was consulted. On my presentation, the patient is visibly uncomfortable in his room. Again, he reports to me that he has never felt any pain even close to this. The pain is mostly in the forearm, but does radiate into the upper arm and hand, but is more mild in those areas. He does report numbness in the hand that is not his baseline. Elevation and removal of the dressing has not alleviated any of his symptoms. Review of Systems: Negative for fever, recent visual changes, difficulty swallowing, chest pain, shortness of breath, abdominal pain, hematuria, easy bruising, diffuse weakness or lack of coordination, and diffuse rash. PMH: Hypertension PSH: Right carpal tunnel release, left shoulder surgery, left distal biceps tendon repair, left elbow surgery earlier today. 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 No tobacco use. He is right-hand dominant. FH: Noncontributory Physical Examination: Constitutional: Temp Pulse Resp BP Pulse Ox 97.5 F 70 22 150/85 97 06/29/18 13:22 06/29/18 13:22 06/29/18 13:58 06/29/18 13:22 06/29/18 13:22 General appearance is healthy. He is quite uncomfortable visibly. Cardiovascular: Pulse examination demonstrates positive peripheral pulses in the right upper extremity and bilateral lower extremities. There are no varicosities. Abdomen: Soft and nontender Lymphatic: No lymphadenopathy appreciated. Skin: Bilateral upper and lower extremity examination demonstrates no ulcerative lesions. Psychiatric / Neurological: Appropriate affect. Alert and oriented to person, place and time. There is no significant abnormality in coordination appreciated. Normoreflexive deep tendon reflex of the affected extremity. Musculoskeletal: Bilateral lower extremities and contralateral upper extremity show full range of motion with no evidence of instability and no tenderness with palpation and 5 /5 strength. There is no gross deformity. He has no pain with shoulder range of motion. He has a surgical incision at the anterior elbow. He has pain with any attempt at elbow or wrist range of motion. His upper arm is soft and nontender. His left hand is held in intrinsic minus position His 3 forearm compartments are very firm and tender. There is pronounced swelling of the forearm. His hand compartments are soft and nontender. His radial pulse is weakly palpable. He has sluggish capillary refill in the fingers. He has markedly decreased sensation in the radial and median distributions in the hand. He has mildly decreased sensation in the ulnar nerve distribution in the hand. He has exquisite pain with attempted passive stretch of the fingers. I obtained verbal consent for a left forearm compartment pressure testing. The pressure in the dorsal compartment of the left forearm was 110 mmHg. Impression and Plan: Acute postoperative left forearm compartment syndrome and acute carpal tunnel syndrome. I discussed the diagnosis with him and his at length. We discussed the urgency of the situation and need for surgical decompression of the muscle compartments and carpal tunnel. The plan will be for left forearm 3 compartment fasciotomies, left carpal tunnel release, placement of a wound VAC. Risks were reviewed at length. They verbalized understanding and a desire to move forward with surgery. This will be performed emergently. All questions are answered. Anant Mullins MD
--- NOTE | 2018-06-29 14:52 | OP ---
Operative Report - Blank - Operative Report Date of Operation: 06/29/18 Note: PATIENT: Nick Fernandez DATE OF : 1970 DATE OF SURGERY: 06/29/2018 SURGEON: Anant Mullins MD AML ANALYST: none ANESTHESIOLOGIST: Dr. Michaels PREOPERATIVE DIAGNOSIS: Acute postoperative left forearm compartment syndrome and acute left carpal tunnel syndrome. POSTOPERATIVE DIAGNOSIS: Acute postoperative left forearm compartment syndrome and acute left carpal tunnel syndrome. OPERATION: 1. Left forearm 3 compartment fasciotomies 2. Left carpal tunnel release 3. Placement of a left forearm wound VAC ANESTHESIA: GETA IMPLANTS: none TOURNIQUET TIME: Less than 30 minutes with a well-padded arm tourniquet at 225 mmHg SPECIMENS: none ESTIMATED BLOOD LOSS: 100cc COMPLICATIONS: none STATUS: Stable from the operating room to the recovery room. INDICATIONS FOR PROCEDURE: Nick developed acute left forearm compartment syndrome and acute carpal tunnel syndrome postoperatively from surgery yesterday. The nature and risks of surgery were reviewed in careful detail. Our discussions regarding the risks of surgery included, but were not limited to, infection, wound problems, nerve injury, neuroma, loss of function, muscle , RSD, persistent symptoms, blood clot, need for further surgery, failure of the surgery, need for further surgery and even the remote chance of catastrophic complication, including loss of limb. DESCRIPTION OF PROCEDURE: The patient was seen in the preoperative holding unit and informed written consent was obtained. The appropriate extremity was marked. The patient was then brought to the operating room and carefully positioned on the operating room table. Anesthesia was induced. All bony prominences were padded with great care. A well-padded arm tourniquet was placed. A chlorhexidine based pre-scrub was performed followed by a chloraprep prep and drape in standard sterile fashion. A surgical safety pause was then conducted in which we confirmed the appropriate patient, extremity, planned procedure, availability of equipment, indication and administration of prophylactic antibiotics, and DVT prophylaxis in the form of a compression boot on the non-surgical extremity. I began with an Esmarch exsanguination of the extremity and inflation of the tourniquet. I opened the prior surgical incision over the antecubital fossa and then extended this distally and ulnarly down to the wrist crease. I then curving incision to incorporate a carpal tunnel release incision distally. I dissected down to the layer of the muscular fascia. It was very tense. I then incised the volar compartment fascia, and the muscle herniated out under intense pressure. I then incised the mobile wad compartment fascia, which was tense, but less so than the volar compartment. While some of the musculature in the volar compartment was a little dusky, it was all contractile. The mobile wad muscle was healthier appearing. I then performed a carpal tunnel release by incising the transverse carpal ligament. The median nerve was protected throughout and fully decompressed at the end. The volar forearm wound measured 40 cm in length, and at its peak, 13 cm in width. I then made a longitudinal incision dorsally over the dorsal muscle compartment of forearm. I dissected down to the fascial layer and incised the dorsal compartment fascia. All of the underlying muscle appeared healthy and contractile. At this point, the tourniquet was deflated. The wound was copiously irrigated with sterile saline. I coagulated any bleeders, and hemostasis was obtained. The dorsal wound was closed in layers utilizing 3-0 Monocryl and 3-0 nylon for the skin. I then closed the volar wound over the antecubital fossa, using 3-0 Monocryl and 3-0 nylon. I also closed the carpal tunnel portion of the distal incision with 3-0 Monocryl and 3-0 nylon. I then placed a wound VAC into the open portion of the volar forearm. A sterile rubber band was stapled the skin over the wound VAC to provide some tension on the skin edges. Suction was applied to the wound VAC. The patient was then awakened from anesthesia and transferred to the recovery room in stable condition. All needle and sponge counts were correct at the end of the case. ATTESTATION: I attest I was present and scrubbed and performed the entire procedure myself. POSTOPERATIVE PLAN: I checked on Nick recovery room and his neurovascular status was improving. After being in the recovery room for about a half an hour the wound VAC started having increased bloody output and stopped holding suction. I was concerned about the amount of bleeding and the fact that the wound VAC wasn't working, so we made the decision to take him back to the operating room, please see next operative note.
--- NOTE | 2018-06-29 15:21 | OP ---
Operative Report - Blank - Operative Report Date of Operation: 06/29/18 Note: PATIENT: Nick Fernandez DATE OF : 1970 DATE OF SURGERY: 06/29/2018 SURGEON: Anant Mullins MD SHREDDING FLOOR EQUIPMENT OPERATOR: Abraham Holcomb MD ANESTHESIOLOGIST: Dr. Michaels PREOPERATIVE DIAGNOSIS: Postoperative bleeding and loss of VAC suction status post left forearm 3 compartment fasciotomies and carpal tunnel release for acute postoperative left forearm compartment syndrome and acute left carpal tunnel syndrome. POSTOPERATIVE DIAGNOSIS: Postoperative bleeding and loss of VAC suction status post left forearm 3 compartment fasciotomies and carpal tunnel release for acute postoperative left forearm compartment syndrome and acute left carpal tunnel syndrome. OPERATION: 1. Coagulation of bleeding branch of the left brachial artery 2. Placement of left forearm wound VAC ANESTHESIA: GETA IMPLANTS: none TOURNIQUET TIME: none SPECIMENS: none ESTIMATED BLOOD LOSS: minimal COMPLICATIONS: none STATUS: Stable from the operating room to the recovery room. INDICATIONS FOR PROCEDURE: Nick had left forearm compartment fasciotomies, carpal tunnel release, and placement of a wound VAC for acute postoperative left forearm compartment syndrome and acute carpal tunnel syndrome. In the recovery room the VAC stopped working and he had increased bleeding from the wound. I discussed my concerns with Nick and his and recommended he go back to the operating room to place the wound VAC and obtained hemostasis. The nature and risks of surgery were again reviewed in careful detail. DESCRIPTION OF PROCEDURE: The patient was seen in the preoperative holding unit and informed written consent was obtained. The appropriate extremity was marked. The patient was then brought to the operating room and carefully positioned on the operating room table. Anesthesia was induced. All bony prominences were padded with great care. The left arm was then prepped with Betadine prep. A surgical safety pause was then conducted in which we confirmed the appropriate patient, extremity, planned procedure, availability of equipment, indication and administration of prophylactic antibiotics, and DVT prophylaxis in the form of a compression boot on the non-surgical extremity. I explored the volar wound and removed the sutures to see the full extent of the wound. There was a pulsatile bleeding branch off of the brachial artery in the antecubital fossa. I placed a hemostat and coagulated the branch. No other significant bleeders were appreciated. At this point, the wound remained dry without any pooling of blood. The wound was then copiously irrigated again and the proximal and distal portions of the volar wound were again closed in a layered fashion. A wound VAC was again placed into the volar forearm wound and then covered with a sterile Juanjose drain providing some tension on the skin. The VAC held good suction with minimal output. The dorsal wound was dressed. The patient was then awakened from anesthesia and transferred to the recovery room in stable condition. All needle and sponge counts were correct at the end of the case. ATTESTATION: I attest I was present and scrubbed for the entire procedure. POSTOPERATIVE PLAN: We will continue the VAC at 125 mmHg. He will continue on IV antibiotics while the wound is open. Dr. Holcomb is planning on a return to the OR in 2-3 days for a repeat washout, possible wound closure versus split- thickness skin grafting. I saw Nick in the recovery room and there was minimal bloody output in the VAC. It was holding good suction. His neurovascular exam was much improved. His motor function was intact in the radial, median and ulnar nerve distributions in the hand. He had full sensation of the radial and ulnar distributions. He did have some mild numbness in the median nerve distribution, but much improved from before the surgeries. He had a strong palpable radial pulse with good capillary refill in all 5 of the fingers. The hand was warm. Pain was much improved.
[2018-06-29] MEDS ORDERED: Diazepam TAB(*) 5 MG PO ONE (16:30)
[2018-06-29] MEDS: Diazepam TAB(*) 5 MG ONE ×2 (16:39→16:53)
[2018-06-29] MEDS: Diazepam TAB(*) 5 MG PO PRN (20:00)
[2018-06-29] MEDS: Gabapentin CAP(*) 300 MG PO SCH (21:09)
[2018-06-30] MEDS: ceFAZolin 2 GM PREMIX in ORs 2 GM/50 ML BAG IVPB SCH ×3 (01:40→16:58)
[2018-06-30] MEDS: Diazepam TAB(*) 5 MG PO PRN ×4 (01:53→22:19)
[2018-06-30] MEDS: Ketorolac INJ* 30 MG/ML 1 ML VIAL IV PUSH PRN ×4 (01:56→20:07)
[2018-06-30] MEDS: oxyCODONE/Acetamin 5/325 MG* TAB PO PRN ×2 (02:24→06:38)
[2018-06-30] MEDS: HYDROmorphone PCA* 20 MG/20 ML PCA.SYRING PCA SCH ×2 (04:39→16:47)
[2018-06-30] MEDS ORDERED: Morphine TAB Extended Release (*) 15 MG TAB.ER PO ONE (05:30)
[2018-06-30] MEDS ORDERED: HYDROmorphone INJ1* 1 MG/ML SYRINGE IV ONE (05:35)
[2018-06-30] MEDS: Gabapentin CAP(*) 300 MG PO SCH ×2 (09:36→20:06)
[2018-06-30] MEDS ORDERED: Morphine TAB Extended Release (*) 15 MG TAB.ER PO SCH (10:00)
[2018-06-30] MEDS ORDERED: Morphine TAB Extended Release (*) 30 MG TAB.ER PO SCH (10:00)
[2018-06-30] MEDS: Morphine ORAL.SOLN 10 mg* 2 MG/ML UDC 5 ml PO PRN ×2 (10:17→16:17)
--- NOTE | 2018-06-30 11:07 | PN ---
Progress Note - Progress Note Date of Service: 06/30/18 Note: Pain improved this morning although still in pain. Moving fingers easier, able to make nearly a full fist with only mild discomfort. VSS Wound vac functional, still producing a continuous amount of mild serosanguinous drainage; AIN, PIN and ulnar motor function intact. Arm is soft and compressible No signs of infection. A/P: stable and arm softer today I encouraged him to work on motion in the hand, splint was replaced continue vac and ancef while the wound is open The plan for now is return to OR likely Monday for a vac change and to close a little more or the margins of the wound Dr. Oshea assisting with pain control
[2018-06-30] MEDS ORDERED: Diazepam TAB(*) 5 MG PO PRN (11:55)
--- NOTE | 2018-06-30 13:20 | PN ---
Progress Note - Progress Note Date of Service: 06/30/18 Note: S) Pain gradually improving, more "muscle spasm" now. Valium helping with that. Sensation continues to improve. O) Continued mild decreased sensation in median nerve, intact in R/U. Motor function continuing to improve. Forearm soft. Vac with good suction and minimal output today. hand wwp. A) Continues to improve POD1 fasciotomies, CTR, VAC P) Pain control. Likely return to OR Monday with Dr. Holcomb. VAC at 125. IV abx. Work on finger ROM. Anant Mullins MD
[2018-06-30] MEDS: Magnesium Hydroxide LIQ* 30 ML UDC PO PRN (16:18)
[2018-06-30] MEDS: Docusate CAP* 100 MG PO PRN ×2 (16:18→22:20)
[2018-06-30] MEDS: Morphine TAB Extended Release (*) 30 MG TAB.ER PO SCH (18:02)
[2018-06-30] MEDS: Ondansetron INJ* 2 MG/ML VIAL IV PRN (21:08)
[2018-07-01] MEDS: ceFAZolin 2 GM PREMIX in ORs 2 GM/50 ML BAG IVPB SCH ×3 (01:09→16:57)
[2018-07-01] MEDS: Ketorolac INJ* 30 MG/ML 1 ML VIAL IV PUSH PRN ×4 (02:55→22:04)
[2018-07-01] MEDS: Diazepam TAB(*) 5 MG PO PRN ×5 (03:11→22:56)
[2018-07-01] MEDS: Morphine TAB Extended Release (*) 30 MG TAB.ER PO SCH ×2 (06:09→18:05)
[2018-07-01] MEDS: HYDROmorphone PCA* 20 MG/20 ML PCA.SYRING PCA SCH ×2 (08:08→21:21)
[2018-07-01] MEDS: Docusate CAP* 100 MG PO PRN ×2 (08:57→22:03)
[2018-07-01] MEDS: Magnesium Hydroxide LIQ* 30 ML UDC PO PRN ×2 (08:57→15:24)
[2018-07-01] MEDS: Gabapentin CAP(*) 300 MG PO SCH ×2 (08:58→21:24)
--- NOTE | 2018-07-01 12:29 | PN ---
Progress Note - Progress Note Date of Service: 07/01/18 SOAP: Subjective: Pt seen sitting in chair. States pain is a little more under control. Feels more loopy. Denies CP, SOB, F/C. Vital Signs: Temp Pulse Resp BP Pulse Ox 98.5 F 81 18 141/80 97 07/01/18 11:23 07/01/18 11:23 07/01/18 11:55 07/01/18 11:23 07/01/18 11:23 Laboratory Last Values WBC 10.0 10^3/ul (3.5-10.8) 06/29/18 02:03 RBC 4.93 10^6/ul (4.00-5.40) 06/29/18 02:03 Hgb 14.0 g/dl (14.0-18.0) 06/29/18 02:03 Hct 41 % (42-52) L 06/29/18 02:03 MCV 83 fL (80-94) 06/29/18 02:03 MCH 28 pg (27-31) 06/29/18 02:03 MCHC 34 g/dl (31-36) 06/29/18 02:03 RDW 14 % (10.5-15) 06/29/18 02:03 Plt Count 165 10^3/ul (150-450) 06/29/18 02:03 MPV 9.1 fL (7.4-10.4) 06/29/18 02:03 Neut % (Auto) 89.8 % 06/29/18 02:03 Lymph % (Auto) 6.1 % 06/29/18 02:03 [place] % (Auto) 3.9 % 06/29/18 02:03 Eos % (Auto) 0.1 % 06/29/18 02:03 Baso % (Auto) 0.1 % 06/29/18 02:03 Absolute Neuts (auto) 9.0 10^3/ul (1.5-7.7) H 06/29/18 02:03 Absolute Lymphs (auto) 0.6 10^3/ul (1.0-4.8) L 06/29/18 02:03 Absolute Monos (auto) 0.4 10^3/ul (0-0.8) 06/29/18 02:03 Absolute Eos (auto) 0 10^3/ul (0-0.6) 06/29/18 02:03 Absolute Basos (auto) 0 10^3/ul (0-0.2) 06/29/18 02:03 Absolute Nucleated RBC 0 10^3/ul 06/29/18 02:03 Nucleated RBC % 0.1 06/29/18 02:03 INR (Anticoag Therapy) 1.02 (0.77-1.02) 06/29/18 02:03 APTT 31.5 seconds (26.0-36.3) 06/29/18 02:03 Sodium 135 mmol/L (135-145) 06/29/18 02:03 Potassium 4.3 mmol/L (3.5-5.0) 06/29/18 02:03 Chloride 104 mmol/L (101-111) 06/29/18 02:03 Carbon Dioxide 25 mmol/L (22-32) 06/29/18 02:03 Anion Gap 6 mmol/L (2-11) 06/29/18 02:03 BUN 16 mg/dL (6-24) 06/29/18 02:03 Creatinine 0.99 mg/dL (0.67-1.17) 06/29/18 02:03 Est GFR ( Amer) 98.5 (>60) 06/29/18 02:03 Est GFR (Non-Af Amer) 81.4 (>60) 06/29/18 02:03 BUN/Creatinine Ratio 16.2 (8-20) 06/29/18 02:03 Glucose 152 mg/dL (70-100) H 06/29/18 02:03 Lactic Acid 1.8 mmol/L (0.5-2.0) 06/29/18 02:03 Calcium 9.3 mg/dL (8.6-10.3) 06/29/18 02:03 Total Bilirubin 0.50 mg/dL (0.2-1.0) 06/29/18 02:03 AST 20 U/L (13-39) 06/29/18 02:03 ALT 25 U/L (7-52) 06/29/18 02:03 Alkaline Phosphatase 49 U/L (34-104) 06/29/18 02:03 Total Creatine Kinase 168 U/L (10-223) 06/29/18 02:03 C-Reactive Protein 6.40 mg/L (<8.01) 06/29/18 02:03 Total Protein 6.8 g/dL (6.4-8.9) 06/29/18 02:03 Albumin 4.4 g/dL (3.2-5.2) 06/29/18 02:03 Globulin 2.4 g/dL (2-4) 06/29/18 02:03 Albumin/Globulin Ratio 1.8 (1-3) 06/29/18 02:03 Blood Type A Positive 06/29/18 02:03 Antibody Screen Negative 06/29/18 02:03 Objective: A&Ox3, NAD. Splint clean and intact. Wound vac intact. Able to flex and extend his fingers. Sensation intact to light touch distally. 2+ radial pulse. Assessment: 47 yo male s/p left UE faciotomies POD #2 Plan: OOB ad hair Pain control continue wound vac continue IV abx NPO after MN for OR tomorrow to change wound vac
[2018-07-01] MEDS: Morphine ORAL.SOLN 10 mg* 2 MG/ML UDC 5 ml PO PRN ×2 (15:25→21:35)
[2018-07-02] MEDS: ceFAZolin 2 GM PREMIX in ORs 2 GM/50 ML BAG IVPB SCH ×3 (01:27→16:13)
[2018-07-02] MEDS: Diazepam TAB(*) 5 MG PO PRN ×4 (04:05→18:26)
[2018-07-02] MEDS: Ketorolac INJ* 30 MG/ML 1 ML VIAL IV PUSH PRN ×4 (04:06→22:13)
[2018-07-02] MEDS: Morphine TAB Extended Release (*) 30 MG TAB.ER PO SCH ×3 (06:24→18:27)
[2018-07-02] MEDS ORDERED: Bupivacaine 0.25% SDV PF* 10 ML VIAL INJ ONE (06:33)
[2018-07-02] MEDS ORDERED: fentaNYL* 50 MCG/ML 2 ML VIAL (100 MCG VIAL) ONE ×6 (06:47→09:41)
[2018-07-02] MEDS ORDERED: Sodium Citrate/Citric Acid* 15 ML UDC ONE (07:00)
--- NOTE | 2018-07-02 07:00 | PN ---
Progress Note - Progress Note Date of Service: 07/02/18 Note: I have spoken with him this morning and yesterday. He continues to be stable. The hand feels less tingly. Moving hand a little better. A/P: Stable Plan for left forearm wound irrigation and debridement and wound vac change this morning in the operating room.
[2018-07-02] MEDS ORDERED: Lidocaine 2% PF * 5 ML VIAL ONE (07:07)
[2018-07-02] MEDS ORDERED: Propofol* 10 MG/ML 20 ML BTL ONE (07:07)
[2018-07-02] MEDS ORDERED: Naloxone* 0.4 MG/ML 1 ML VIAL IV PRN (07:50)
[2018-07-02] MEDS: Gabapentin CAP(*) 300 MG PO SCH ×3 (08:12→21:47)
[2018-07-02] MEDS: fentaNYL* 50 MCG/ML 2 ML VIAL (100 MCG VIAL) IV PRN ×5 (08:14→10:39)
[2018-07-02] MEDS ORDERED: Labetalol IV* 5 MG/ML 20 ML VIAL ONE (08:23)
[2018-07-02] MEDS ORDERED: Diazepam TAB(*) 5 MG ONE (08:37)
[2018-07-02] MEDS ORDERED: HYDROmorphone PCA* 20 MG/20 ML PCA.SYRING ONE (08:49)
[2018-07-02] MEDS: HYDROmorphone PCA* 20 MG/20 ML PCA.SYRING PCA SCH ×2 (08:59→20:22)
[2018-07-02] MEDS ORDERED: Gabapentin CAP(*) 300 MG ONE (10:11)
[2018-07-02] MEDS ORDERED: Ketorolac INJ* 30 MG/ML 1 ML VIAL ONE (10:11)
[2018-07-02] MEDS: Morphine ORAL.SOLN 10 mg* 2 MG/ML UDC 5 ml PO PRN ×2 (14:42→21:47)
--- NOTE | 2018-07-02 16:22 | OP ---
DATE OF OPERATION: 07/02/18 - ROOM #333 DATE OF : [birth year] SURGEON: Abraham Holcomb MD. SERVICES MANAGER: None. ANESTHESIOLOGIST: Dr. Harper. ANESTHESIA: General. PRE-OP DIAGNOSIS: Left forearm wound, status post left forearm compartment syndrome that was released with fasciotomies 3 days ago. POST-OP DIAGNOSIS: Left forearm wound, status post left forearm compartment syndrome that was released with fasciotomies 3 days ago. OPERATIVE PROCEDURE: Left forearm wound irrigation and debridement and wound VAC change. ESTIMATED BLOOD LOSS: 5 mL. COMPLICATIONS: None. FINDINGS: See above and below. DESCRIPTION OF PROCEDURE: Nick was seen in the preoperative holding area. The correct site, side, and procedure were identified. We came back to the operating room, the wound VAC was taken off. We washed around the margins of the wound with Betadine prep, we then draped and then a time-out was performed. I went ahead and removed some of his lopez proximally and distally just to allow for any more drainage should there be any needed. The forearm muscle looked viable with just some small patchy areas where the muscle looked a little darker, mostly on the FCR. The wound was irrigated out and cleaned. There was one superficial vein that was cauterized with Bovie cautery. Besides that, the wound was completely dry. Once everything was nice and clean, we measured a new wound VAC sponge. This was placed and then the wound VAC was applied in standard fashion and set to 125 mm of continuous negative pressure. The incision having closed proximally and distally, was again covered with Xeroform and 4x4's, and then incorporated into the wound VAC. After the seal was checked and the wound VAC was functioning appropriately, all the drapes were taken down and Nick was taken to the recovery room in stable condition. [id number]/[facility] #: [id number] MTDD
[2018-07-02] MEDS: Magnesium Hydroxide LIQ* 30 ML UDC PO PRN ×2 (17:15→21:47)
[2018-07-02] MEDS: Docusate CAP* 100 MG PO PRN (17:15)
[2018-07-03] MEDS: ceFAZolin 2 GM PREMIX in ORs 2 GM/50 ML BAG IVPB SCH ×3 (01:04→16:56)
[2018-07-03] MEDS: Diazepam TAB(*) 5 MG PO PRN ×5 (01:39→22:57)
[2018-07-03] MEDS: Ketorolac INJ* 30 MG/ML 1 ML VIAL IV PUSH PRN ×4 (04:10→22:56)
[2018-07-03] MEDS: Morphine TAB Extended Release (*) 30 MG TAB.ER PO SCH ×2 (06:22→17:58)
[2018-07-03] MEDS: Gabapentin CAP(*) 300 MG PO SCH ×2 (09:11→20:57)
--- NOTE | 2018-07-03 10:07 | PN ---
Progress Note - Progress Note Date of Service: 07/03/18 SOAP: Subjective: []Left arm pain, tingling, numbness and movement of fingers have all improved since yesterday. He has no complaints today aside from asking for a sling to offload weight of the arm while he mobilizes. Denies CP, SOB, dizziness, nausea. Objective: []General: well appearing, NAD LUE: Hand is warm and supple, moderately edematous without erythema, it is nontender to palpation. Capillary refill is less than two seconds distally in all digits. Sensation is intact to light touch throughout hand and all digits. Able to flex and extend MCP, PIP, DIP of all 5 digits without pain. Thumbs up and finger to thumb and opposition intact. Chucho taken down, webril left intact but able to evaluate forearm around the vac which was compressible and moderately tender without any erythema or discharge of visible area. Vac maintains good suction with minimal output. Proximal to the splint the arm is compressible and mildly tender, ecchymosis present. BL Calves supple, nontender, no erythema or edema. Assessment: []Continues to improve S/P fasciotomies, vac Plan: []Sling or stockinette around neck to support arm while patient mobilizes to off load weight. NWB LUE. Pain is well controlled at this time, no change in pain meds. Patient knows to alert staff with any change Elevate, ice, work on finger ROM Continue vac at 125 SCDs while in bed, OOB and mobilize as desired Plan to return to OR for skin graft 07/04 or 07/05 Vital Signs Temp 98.3 F 07/03/18 07:07 Pulse 64 07/03/18 07:07 Resp 16 07/03/18 09:11 BP 133/75 07/03/18 07:07 Pulse Ox 98 07/03/18 08:00 Intake & Output 07/02/18 07/03/18 07/03/18 18:59 06:59 18:59 Intake Total 535 2019 Output Total 2075 Balance 535 -56 Intake: IV Fluids 300 LR 300 Oral 235 2019 Output: Urine 2074 Straight Cath 1 Other: Estimated Void Medium Large Date of Last Bowel 07/03/18 Movement # Bowel Movements 1 Estimated Stool Amount Small # Voids 1 1 Laboratory Last Values WBC 10.0 10^3/ul (3.5-10.8) 06/29/18 02:03 RBC 4.93 10^6/ul (4.00-5.40) 06/29/18 02:03 Hgb 14.0 g/dl (14.0-18.0) 06/29/18 02:03 Hct 41 % (42-52) L 06/29/18 02:03 MCV 83 fL (80-94) 06/29/18 02:03 MCH 28 pg (27-31) 06/29/18 02:03 MCHC 34 g/dl (31-36) 06/29/18 02:03 RDW 14 % (10.5-15) 06/29/18 02:03 Plt Count 165 10^3/ul (150-450) 06/29/18 02:03 MPV 9.1 fL (7.4-10.4) 06/29/18 02:03 Neut % (Auto) 89.8 % 06/29/18 02:03 Lymph % (Auto) 6.1 % 06/29/18 02:03 [place] % (Auto) 3.9 % 06/29/18 02:03 Eos % (Auto) 0.1 % 06/29/18 02:03 Baso % (Auto) 0.1 % 06/29/18 02:03 Absolute Neuts (auto) 9.0 10^3/ul (1.5-7.7) H 06/29/18 02:03 Absolute Lymphs (auto) 0.6 10^3/ul (1.0-4.8) L 06/29/18 02:03 Absolute Monos (auto) 0.4 10^3/ul (0-0.8) 06/29/18 02:03 Absolute Eos (auto) 0 10^3/ul (0-0.6) 06/29/18 02:03 Absolute Basos (auto) 0 10^3/ul (0-0.2) 06/29/18 02:03 Absolute Nucleated RBC 0 10^3/ul 06/29/18 02:03 Nucleated RBC % 0.1 06/29/18 02:03 INR (Anticoag Therapy) 1.02 (0.77-1.02) 06/29/18 02:03 APTT 31.5 seconds (26.0-36.3) 06/29/18 02:03 Sodium 135 mmol/L (135-145) 06/29/18 02:03 Potassium 4.3 mmol/L (3.5-5.0) 06/29/18 02:03 Chloride 104 mmol/L (101-111) 06/29/18 02:03 Carbon Dioxide 25 mmol/L (22-32) 06/29/18 02:03 Anion Gap 6 mmol/L (2-11) 06/29/18 02:03 BUN 16 mg/dL (6-24) 06/29/18 02:03 Creatinine 0.99 mg/dL (0.67-1.17) 06/29/18 02:03 Est GFR ( Amer) 98.5 (>60) 06/29/18 02:03 Est GFR (Non-Af Amer) 81.4 (>60) 06/29/18 02:03 BUN/Creatinine Ratio 16.2 (8-20) 06/29/18 02:03 Glucose 152 mg/dL (70-100) H 06/29/18 02:03 Lactic Acid 1.8 mmol/L (0.5-2.0) 06/29/18 02:03 Calcium 9.3 mg/dL (8.6-10.3) 06/29/18 02:03 Total Bilirubin 0.50 mg/dL (0.2-1.0) 06/29/18 02:03 AST 20 U/L (13-39) 06/29/18 02:03 ALT 25 U/L (7-52) 06/29/18 02:03 Alkaline Phosphatase 49 U/L (34-104) 06/29/18 02:03 Total Creatine Kinase 168 U/L (10-223) 06/29/18 02:03 C-Reactive Protein 6.40 mg/L (<8.01) 06/29/18 02:03 Total Protein 6.8 g/dL (6.4-8.9) 06/29/18 02:03 Albumin 4.4 g/dL (3.2-5.2) 06/29/18 02:03 Globulin 2.4 g/dL (2-4) 06/29/18 02:03 Albumin/Globulin Ratio 1.8 (1-3) 06/29/18 02:03 Blood Type A Positive 06/29/18 02:03 Antibody Screen Negative 06/29/18 02:03
[2018-07-03] MEDS: Magnesium Hydroxide LIQ* 30 ML UDC PO PRN (11:28)
[2018-07-03] MEDS: Docusate CAP* 100 MG PO PRN ×2 (11:28→20:57)
[2018-07-03] MEDS: HYDROmorphone PCA* 20 MG/20 ML PCA.SYRING PCA SCH ×2 (11:33→23:59)
[2018-07-03] MEDS: Morphine ORAL.SOLN 10 mg* 2 MG/ML UDC 5 ml PO PRN (20:56)
--- NOTE | 2018-07-03 22:48 | PN ---
Progress Note - Progress Note Date of Service: 07/03/18 Note: Nick continues to improve. The hand is moving better with less discomfort. WV functional with minimal drainage. A/P: Doing well, NPO at midnight. Plan for wound closure versus split thickness skin grafting tomorrow in the operating room.
[2018-07-04] MEDS: Lactated Ringers 1000 ML Bag* 1,000 ML IV SCH ×2 (01:47→22:49)
[2018-07-04] MEDS: ceFAZolin 2 GM PREMIX in ORs 2 GM/50 ML BAG IVPB SCH ×3 (01:47→19:44)
[2018-07-04] MEDS: Diazepam TAB(*) 5 MG PO PRN ×3 (04:03→22:57)
[2018-07-04] MEDS: Morphine TAB Extended Release (*) 30 MG TAB.ER PO SCH ×2 (06:09→20:16)
[2018-07-04] MEDS: Morphine ORAL.SOLN 10 mg* 2 MG/ML UDC 5 ml PO PRN (06:25)
[2018-07-04] MEDS: Ketorolac INJ* 30 MG/ML 1 ML VIAL IV PUSH PRN (06:26)
[2018-07-04] MEDS: Gabapentin CAP(*) 300 MG PO SCH ×2 (09:07→20:16)
[2018-07-04] MEDS: HYDROmorphone PCA* 20 MG/20 ML PCA.SYRING PCA SCH (11:57)
[2018-07-04] MEDS ORDERED: Famotidine IV* 10 MG/ML 2 ML (20 mg) IV ONE (12:43)
[2018-07-04] MEDS ORDERED: Lactated Ringers 1000 ML Bag* 1,000 ML IV SCH (13:00)
[2018-07-04] MEDS ORDERED: KETAMINE HCL* 50 MG/ML 10 ML VIAL ONE (13:47)
[2018-07-04] MEDS ORDERED: Midazolam* 1 MG/ML 5 ML VIAL (5 MG) ONE (13:47)
[2018-07-04] MEDS ORDERED: fentaNYL* 50 MCG/ML 2 ML VIAL (100 MCG VIAL) ONE (13:47)
[2018-07-04] MEDS ORDERED: Famotidine IV* 10 MG/ML 2 ML (20 mg) ONE (15:16)
[2018-07-04] MEDS ORDERED: Bupivacaine 0.25% SDV PF* 10 ML VIAL INJ ONE (15:58)
[2018-07-04] MEDS ORDERED: Mineral Oil Sterile, TOPICAL* 25 ML BTL ONE (15:58)
[2018-07-04] MEDS ORDERED: Propofol* 10 MG/ML 20 ML BTL ONE (17:06)
[2018-07-04] MEDS ORDERED: Ondansetron INJ* 2 MG/ML VIAL ONE (17:06)
[2018-07-04] MEDS ORDERED: Ketorolac INJ* 30 MG/ML 1 ML VIAL ONE (17:06)
[2018-07-04] MEDS ORDERED: Lidocaine 2% PF * 5 ML VIAL ONE (17:06)
[2018-07-04] MEDS ORDERED: Dexamethasone IV* 4 MG/ML 1 ML (4 MG) ONE (17:06)
[2018-07-04] MEDS ORDERED: HYDROmorphone INJ1* 1 MG/ML SYRINGE ONE (17:06)
[2018-07-04] MEDS ORDERED: DiMENhydriNATE IV* 50 MG/ML VIAL ONE (17:06)
[2018-07-04] MEDS ORDERED: HYDROmorphone INJ1* 1 MG/ML SYRINGE IV PRN (17:34)
[2018-07-04] MEDS ORDERED: DiMENhydriNATE IV* 50 MG/ML VIAL IV PUSH PRN (17:34)
[2018-07-04] MEDS ORDERED: Acetaminophen TAB* 325 MG PO PRN (17:34)
[2018-07-05] MEDS: HYDROmorphone PCA* 20 MG/20 ML PCA.SYRING PCA SCH ×2 (01:14→13:53)
[2018-07-05] MEDS: ceFAZolin 2 GM PREMIX in ORs 2 GM/50 ML BAG IVPB SCH ×3 (01:23→17:28)
[2018-07-05] MEDS: Diazepam TAB(*) 5 MG PO PRN ×4 (04:10→19:53)
[2018-07-05] MEDS: Morphine TAB Extended Release (*) 30 MG TAB.ER PO SCH (06:30)
[2018-07-05 07:02] LABS: Hematocrit 26 % (42-52); Hemoglobin 9.2 g/dl (14.0-18.0); Mean Platelet Volume 8.5 fL (7.4-10.4); Platelet Count 179 10^3/ul (150-450)
[2018-07-05 07:17] LABS: BUN/Creatinine Ratio 22.2 (8-20); Calcium 8.8 mg/dL (8.6-10.3); EGFR Non-African American 117.5 (>60); Potassium 4.3 mmol/L (3.5-5.0)
[2018-07-05] MEDS: Gabapentin CAP(*) 300 MG PO SCH (09:03)
--- NOTE | 2018-07-05 10:14 | OP ---
DATE OF OPERATION: 07/04/18 - ROOM #333 DATE OF : 72 SURGEON: Abraham Holcomb MD. HANDBAG STITCHER: DARRION Haynes. An product safety technical assistant was needed for the procedure to aid in position of the leg and arm and to assist in harvesting the skin graft. ANESTHESIOLOGIST: Dr. Ruby. ANESTHESIA: General. PRE-OP DIAGNOSIS: Left volar forearm fasciotomy open wound. POST-OP DIAGNOSIS: Left volar forearm fasciotomy open wound. OPERATIVE PROCEDURE: Partial closure and split-thickness skin grafting with left side donor site to left forearm fasciotomy wound. INDICATIONS: Nick had the fasciotomies done early Monday morning. I changed the wound VAC on Monday and washed out the wound. It was dry at that point. Muscle looked viable. I brought him back now today to wash out the wound and try to partially close the wound and whatever wound I can close at this time with a split thickness skin graft, as I think it would take quite some time for the wound to be able to be closed primarily. ESTIMATED BLOOD LOSS: 10 mL. COMPLICATIONS: None. FINDINGS: See above and below. DESCRIPTION OF PROCEDURE: Nick was seen in the preoperative holding area. The correct site, side, and procedure were identified. We came back to the operating room. The arm was prepped and draped in the usual fashion. A time- out was performed. Please note that we had prepped out sterilely both the left leg and the left arm. After I got the wound VAC off and measured the wound, which measured 15 cm x 8 cm, I had decided that I need a long enough strip that I would take it from the thigh. He does have quite a bit of hair on the lateral thigh; however, with the split thickness skin graft, we should not get too much growth of hair. I contemplated taking it from the lateral abdominal area; however, I thought given the length of the piece needed it would do better with taking it from the thigh. After we had both the leg and the arm draped out, we had a time-out. I then went ahead and washed out and cleaned the forearm wound. It was dry. There was no active bleeding, just scant amount of serosanguineous oozing. I went ahead and was able to place one Prolene suture proximally and get another couple of centimeters of the wound closed. Attempted to place a second Prolene suture proximally and distally and ultimately I decided it looked like it was placing too much tension on the wound and so I went ahead and removed those stitches. I measured the final defect and then we turned our attention to harvesting the skin graft. I took my dermatome and set at 0.12. I used a 3-inch blade and harvested one 18 cm strip. It came off very nicely as one piece. The area was coated with mineral oil to facility easy gliding of the dermatome. The graft was then meshed 1.5:1 and then placed dermis side on to the wound. I placed a couple of 2-0 Vicryl sutures through the dermis and muscle edges just make everything lay down nice and smooth and try to eliminate any valleys. The graft laid down very nicely. I then trimmed the graft to size and ultimately it all covered with one strip of graft. The skin graft edges that were in excess were trimmed with Metzenbaum scissors. The stapler was then used to secure the skin graft at its periphery to the skin. A piece of Xeroform was then trimmed to size and placed over the skin graft. The proximal and distal wounds were dressed with Xeroform and 4x4s. I then cut my wound VAC sponge to size and placed this on top of the Xeroform. The plastic was then applied and the wound VAC was set at 125 mm of negative continuous pressure. I then took some fluffs and placed them over the top of the wound VAC and wrapped them with some Kerlix providing some gentle compression down over the area to make an extra effort to prevent any shearing. The VAC had excellent fill. I then placed 0.25% Marcaine all around my skin graft donor site. The donor site was dressed with Xeroform and 4x4 and Tegaderm. A splint was placed with the elbow at 80 degrees and then wrapped with Kerlix and Webril and a long arm splint with medial and lateral buttresses were applied. Tourniquet was not used during the case. He was then woken up and taken to the recovery room in stable condition. [id number]/[facility] #: [id number] LIZA
[2018-07-05] MEDS: Morphine ORAL.SOLN 10 mg* 2 MG/ML UDC 5 ml PO PRN ×2 (11:59→22:26)
[2018-07-05] MEDS: Docusate CAP* 100 MG PO PRN (12:04)
[2018-07-05] MEDS: Magnesium Hydroxide LIQ* 30 ML UDC PO PRN ×2 (12:04→15:58)
[2018-07-05] MEDS ORDERED: Morphine ORAL.SOLN 10 mg* 2 MG/ML UDC 5 ml PO PRN (12:49)
[2018-07-05] MEDS: Lactated Ringers 1000 ML Bag* 1,000 ML IV SCH (13:02)
--- NOTE | 2018-07-05 16:07 | PN ---
Progress Note - Progress Note Date of Service: 07/05/18 SOAP: Subjective: Left arm continues to be in pain. He states that the tingling had decreased. He has no complaints today. Donor site on the thigh is also painful but is managed well. Denies CP, SOB, dizziness, nausea. Objective: []General: well appearing, NAD LUE: Splint is intact. He is able to wiggle his fingers which we would like him to not do. A supplemental splint is placed over the current splint leaving the MP joints slightly flexed and the IP joints straight. Vital Signs Temp 98.9 F 07/05/18 15:40 Pulse 84 07/05/18 15:40 Resp 18 07/05/18 15:50 BP 165/98 07/05/18 15:40 Pulse Ox 97 07/05/18 15:40 Intake & Output 07/04/18 07/05/18 07/05/18 18:59 06:59 18:59 Intake Total 1650 2250 1085 Output Total 0 2700 0 Balance 1650 -450 1085 Intake: IV Fluids 1650 1000 980 LR 1650 1000 980 IVPB 50 105 ABX - CEFAZOLIN 50 105 Oral 0 1200 0 Output: Urine 0 2700 0 Other: Estimated Void Large # Voids 1 Assessment: []Continues to improve S/P fasciotomies, vac placement and skin grafting Plan: []Sling or stockinette around neck to support arm while patient mobilizes to off load weight. NWB LUE. Pain management was discussed with anesthesia. The pt will have MS ER 30 mg bid , MSIR 15mg q6h, and increase in valium to 10mg. He was encouraged to utilize all of these and only to use the CENTRAL LAB TECHNICIAN should he absolutely need it Elevate, ice Continue vac at 125 SCDs while in bed, OOB and mobilize as desired Possible DC tomorrow, will assess his pain level.
[2018-07-05] MEDS ORDERED: Morphine TAB Extended Release (*) 30 MG TAB.ER PO SCH (18:00)
[2018-07-05] MEDS: Witch Hazel PAD* JAR TOPICAL PRN (22:12)
[2018-07-06] MEDS: ceFAZolin 2 GM PREMIX in ORs 2 GM/50 ML BAG IVPB SCH ×2 (01:39→10:31)
[2018-07-06] MEDS: Morphine TAB Extended Release (*) 30 MG TAB.ER PO SCH ×3 (01:41→17:45)
[2018-07-06] MEDS: Diazepam TAB(*) 5 MG PO PRN ×4 (01:42→21:53)
[2018-07-06] MEDS: Lactated Ringers 1000 ML Bag* 1,000 ML IV SCH (01:43)
[2018-07-06] MEDS: Morphine ORAL.SOLN 10 mg* 2 MG/ML UDC 5 ml PO PRN ×3 (04:11→21:53)
[2018-07-06] MEDS ORDERED: Ketorolac INJ* 30 MG/ML 1 ML VIAL IM ONE (07:10)
[2018-07-06] MEDS ORDERED: Ketorolac INJ* 30 MG/ML 1 ML VIAL ONE (07:14)
[2018-07-06] MEDS ORDERED: Morphine VIAL* 4 MG/ML VIAL (1 ml vial) IV PRN ×2 (10:49→13:27)
[2018-07-06] MEDS: Witch Hazel PAD* JAR TOPICAL PRN (11:41)
--- NOTE | 2018-07-06 13:25 | PN ---
Progress Note - Progress Note Date of Service: 07/06/18 SOAP: Subjective: 47 y/o male s/p skin grafting, fasciotomies by Dr. holcomb. Patient overall feeling better, pain improved with change of splint. + painful with dressing change to L thigh overnight. No use of COMMUNICATIONS EQUIPMENT OPERATOR this AM. Eager for D/C. no questions, family present. Objective: General- Well appearing, NAD resting in chair comfortably MSK- Splint in place over L arm, wound vac draining serousang fluid, no apparent failure. minimal movement of 2-5 fingers, pink. L thigh dressing changed, no erythema, mild serous drainage. redressed with non-stick gauze, abd pad. thigh non-tender to palpation. Vital Signs Temp 98.4 F 07/06/18 07:56 Pulse 80 07/06/18 13:10 Resp 18 07/06/18 13:03 BP 135/85 07/06/18 07:56 Pulse Ox 98 07/06/18 10:00 Intake & Output 07/05/18 07/06/18 07/06/18 18:59 06:59 18:59 Intake Total 1085 1510 120 Output Total 0 1000 1000 Balance 1085 510 -880 Intake: IV Fluids 980 LR 980 IVPB 105 ABX - CEFAZOLIN 105 Oral 0 1510 120 Output: Urine 0 1000 1000 Other: # Bowel Movements 1 Estimated Stool Amount Medium Assessment: S/P fasciotomies, vac placement and skin grafting, Stable Plan: - Convert to PO pain medication, Dr. Holcomb discussed with Dr Oshea, encourage decreased use - Convert IV ABX to PO - WOund vac to remain in place, will be changed by Dr. holcomb on 2017 - Daily dressing changes or as needed from graft site on thigh, use sterile saline prior to removing dressing - WBAT - Awaiting home care for VAC for D/C. May be D/C'd today if insurance cleared. Diazepam (Valium Tab(*)) 10 mg PO Q5H PRN PRN Reason: PAIN, SPASMS Last Admin: 07/06/18 06:40 Dose: 10 mg Docusate Sodium (Colace Cap*) 100 mg PO BID PRN PRN Reason: CONSTIPATION Last Admin: 07/05/18 12:04 Dose: 100 mg Cefazolin Sodium/Dextrose (Kefzol 2 Gm Premix In Ors(*)) 2 gm in 50 mls @ 100 mls/hr IVPB Q8H [facility] Last Admin: 07/06/18 10:31 Dose: 100 mls/hr Lactated Ringer's (Lactated Ringers 1000 Ml Bag*) 1,000 mls @ 75 mls/hr IV PER RATE [facility] Last Admin: 07/06/18 01:43 Dose: 75 mls/hr Lactulose (Lactulose*) 30 ml PO BID [facility] Last Admin: 07/06/18 10:40 Dose: Not Given Magnesium Hydroxide (Milk Of Magnesia Liq*) 30 ml PO Q4H PRN PRN Reason: CONSTIPATION Last Admin: 07/05/18 15:58 Dose: 30 ml Morphine Sulfate (Morphine Oral.Soln 10 Mg*) 30 mg PO Q6H PRN PRN Reason: PAIN Last Admin: 07/06/18 13:03 Dose: 30 mg Morphine Sulfate (Ms Contin(*)) 30 mg PO Q8H [facility] Last Admin: 07/06/18 10:27 Dose: 30 mg Morphine Sulfate (Morphine Vial*) 2 mg IV Q1H PRN PRN Reason: PAIN Ondansetron HCl (Zofran Inj*) 4 mg IV Q6H PRN PRN Reason: NAUSEA Last Admin: 06/30/18 21:08 Dose: 4 mg Witch Nini (Tucks*) 1 pad TOPICAL Q4H PRN PRN Reason: HEMORRHOIDS Last Admin: 07/06/18 11:41 Dose: 1 pad
[2018-07-06] MEDS: Ondansetron INJ* 2 MG/ML VIAL IV PRN (14:30)
[2018-07-06] MEDS: Cephalexin CAP* 500 MG PO SCH ×2 (17:44→21:52)
[2018-07-07] MEDS: Morphine TAB Extended Release (*) 30 MG TAB.ER PO SCH ×2 (01:59→10:04)
[2018-07-07] MEDS: Docusate CAP* 100 MG PO PRN ×2 (02:27→08:48)
[2018-07-07] MEDS: Diazepam TAB(*) 5 MG PO PRN ×3 (03:03→14:52)
[2018-07-07] MEDS: Cephalexin CAP* 500 MG PO SCH ×3 (08:48→16:04)
--- NOTE | 2018-07-07 12:27 | PN ---
Progress Note - Progress Note Date of Service: 07/07/18 Note: Doing much better. Hand less tingly. VSS Arm and hand splinted. WWP. A/P: POD #3 s/p STSG to fasciotomy wound L forearm Dressing and wound vac in place. Plan for removal Monday. Waiting for home wound vac to arrive. D/c home once wound vac arrives.
[2018-07-07] MEDS: Magnesium Hydroxide LIQ* 30 ML UDC PO PRN (13:21)
[2018-07-07 14:25] VITALS: BP 150/91
[2018-07-07] MEDS: Morphine ORAL.SOLN 10 mg* 2 MG/ML UDC 5 ml PO PRN (16:05)
--- NOTE | 2018-07-08 12:41 | DS ---
DISCHARGE SUMMARY: DATE OF ADMISSION: 06/29/18 DATE OF DISCHARGE: 07/07/18 PROVIDERS: Dr. Anant Mullins and Dr. Abraham Holcomb. ATTENDING PROVIDER: Dr. Mullins * (DICTATED BY DARRION BURTON) ADMITTING DIAGNOSIS: Acute compartment syndrome of the left upper extremity. DISCHARGE DIAGNOSIS: Acute compartment syndrome of the left upper extremity, status post fasciotomy, irrigation and debridement with secondary closure, and skin grafting. SECONDARY DIAGNOSIS: Hypertension. 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 Holcomb on 06/28/18. He reports that when he got home, he had acute worsening of pain in the left forearm. He attempted to use pain medication without relief. HOSPITAL COURSE: He was seen in the emergency room. He had multiple doses of fentanyl there with not much pain relief. Arm became more swollen and hard to the touch, compartment syndrome was a concern. He was then seen by Dr. Mullins in the emergency room where the compartment syndrome pressure testing did reveal that he had an acute compartment syndrome. He was taken directly to the operating room and underwent 3 compartment fasciotomies of the left forearm with left carpal tunnel release and placement of a wound VAC. The patient was recovering in the postanesthesia care unit and was found to have significant amount of blood loss into the wound VAC. He was then taken back to the operating room by Dr. Mullins and was assisted by Dr. Holcomb at that time, he was found to have postoperative bleeding with loss of suction of the wound VAC. The branch of the left brachial artery was the cause of the bleeding and this was coagulated with a new wound VAC placement. Hemostasis was achieved and the patient was then taken back to the PACU where he recovered for a while. He was then transferred to the short-stay surgical unit in stable condition. On postop day 1, the pain was improving, although he was still requiring significant pain medication. Dr. Oshea was then consulted on for assistance of pain control. 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 He had good motor function, and the arm was soft and compressible. There were no signs of infection. He had good sensation. He was also continued on IV antibiotics at that time. On postop day 2, the patient stated that the pain is a little bit more under control; however, he was still requiring the morphine [employer] O[employer] ANALYST. He continued with IV antibiotics. He was then made n.p.o. after midnight for operating room the following day. On postop day 3, the patient was taken back to the operating room for irrigation and debridement with a wound VAC change. He was then placed back in a splint, recovered in the postanesthesia care unit and was transferred back to the short-stay surgical unit. On postop day 4 from the initial surgery, the patient was seen at bedside and he had good movement of all fingers. Pain, tingling, and numbness had been improving. The patient was beginning to wean off of the [employer] ANALYST and long-acting morphine was started. On postop day 5, the patient was then taken back to the operating room for partial secondary closure and split thickness skin grafting of the left side to the forearm fasciotomy wound. This was done without difficulty and the wound VAC was applied. He was then taken back to postanesthesia care unit and transferred back to the short-stay surgical unit. On postop day 6, the N[employer] OPELINT ANALYST was discontinued. He was given morphine sulfate extended release 30 mg b.i.d., immediate release 15 mg q.6. His Valium was increased to 10 mg q.5 hours. This did seem to help with the pain control. He was then placed in a splint to extend past the fingers to prevent any flexion or extension of the fingers as well. The donor site of his skin grafting on the thigh was slightly painful, but dressing was clean and intact. On postop day 7, the patient was seen by Dr. Holcomb, who felt that the patient was doing well. He was just awaiting a home wound VAC at this point to be discharged home. Pain was controlled with oral pain medication. Dressing change to the left thigh was done with no signs of erythema or drainage. On postop day 8, the patient was found stable for discharge home. He did have his wound VAC in place. The hospital VAC was then switched over with good suction. His splint was changed as he was having difficulty with a pressing in on his wrist causing an increase in pain. The original dressing under the splint was left intact. DISCHARGE CONDITION: Stable. DISCHARGE DISPOSITION: Home. DISCHARGE MEDICATIONS: The patient will use: 1. MS Contin 30 mg p.o. b.i.d. 2. Percocet 5/325 one to two tabs p.o. q. 6 hours p.r.n. pain, as the pharmacy did not carry immediate release morphine. 3. Valium 10 mg p.o. q.6 hours p.r.n. spasm. 4. Colace 100 mg p.o. b.i.d. p.r.n. constipation. 5. Keflex 500 mg p.o. q.i.d. x1 week. 6. He will resume his home medications of losartan potassium 50 mg daily. DISCHARGE INSTRUCTIONS: The patient is to be non-weightbearing through the left upper extremity. He is to keep his splint and wound VAC clean, dry, and intact until followup with Dr. Holcomb. He will see Dr. Holcomb on 07/10/18, in the office for wound VAC removal and assessment of the skin grafting and surgical incisions. The patient is under-standing to call the office with any problems or concern or go directly to the emergency room with any increased pain , chest pain, shortness of breath, fever greater than 101.5. DARRION BURTON [id number]/[facility] #: [id number] MTDInes
== END 2018-07-07 16:15 | disposition home or self-care (01) | DRG 312 ==
LOC: ED 23:36 → OR 06-29 03:53 → SSU 06-29 08:57
PROVIDERS: ADMIT Orthopaedic Surgery; ATTEND Orthopaedic Surgery
PROC: 01N50ZZ Release Median Nerve, Open Approach (ICD-10-PCS; 2018-06-28)
PROC: 0LN50ZZ Release Right Lower Arm and Wrist Tendon, Open Approach (ICD-10-PCS; 2018-06-28)
PROC: 0LB50ZZ Excision of Right Lower Arm and Wrist Tendon, Open Approach (ICD-10-PCS; 2018-06-28)
PROC: 2W0DX6Z Change Pressure Dressing on Left Lower Arm (ICD-10-PCS; 2018-06-29)
PROC: 0X3F0ZZ Control Bleeding in Left Lower Arm, Open Approach (ICD-10-PCS; 2018-06-29)
PROC: 01N50ZZ Release Median Nerve, Open Approach (ICD-10-PCS; 2018-06-29)
PROC: 0KNB0ZZ Release Left Lower Arm and Wrist Muscle, Open Approach (ICD-10-PCS; 2018-06-29)
PROC: 0KNB0ZZ Release Left Lower Arm and Wrist Muscle, Open Approach (ICD-10-PCS; 2018-06-29)
PROC: 0KNB0ZZ Release Left Lower Arm and Wrist Muscle, Open Approach (ICD-10-PCS; 2018-06-29)
PROC: 0HDEXZZ Extraction of Left Lower Arm Skin, External Approach (ICD-10-PCS; 2018-07-02)
PROC: 0HBLXZZ Excision of Left Lower Leg Skin, External Approach (ICD-10-PCS; 2018-07-04)
PROC: 0HREX74 Replacement of Left Lower Arm Skin with Autologous Tissue Substitute, Partial Thickness, External Approach (ICD-10-PCS; principal; 2018-07-04 15:00)
DX: M79.A12 Nontraumatic compartment syndrome of left upper extremity (principal); I97.618 Postprocedural hemorrhage of a circulatory system organ or structure following other circulatory system procedure; I10 Essential (primary) hypertension; G56.02 Carpal tunnel syndrome, left upper limb; Y83.8 Other surgical procedures as the cause of abnormal reaction of the patient, or of later complication, without mention of misadventure at the time of the procedure; Y79.3 Surgical instruments, materials and orthopedic devices (including sutures) associated with adverse incidents; Y92.239 Unspecified place in hospital as the place of occurrence of the external cause; Z88.0 Allergy status to penicillin; Z72.89 Other problems related to lifestyle; Z23 Encounter for immunization
CPT/HCPCS: 36415; 80048; 80053; 82550; 83605; 85014; 85018; 85025; 85049; 85610; 85730; 86140; 86850; 86900; 86901; 90686; 99283; A9270-GY; J0690; J1100; J1170; J1240; J1885; J2250; J2270; J2405; J2704; J2765; J3010; J3490

== ENCOUNTER 2019-03-10 21:58 | Emergency (ER) | payer BC, OTHER ==
[2019-03-10] MEDS ORDERED: Morphine 4 MG/ML VIAL (1 ml) 4 MG/ML VIAL IV ONE ×2 (23:04→23:46)
[2019-03-10] MEDS ORDERED: Ondansetron INJ* 2 MG/ML VIAL IV ONE (23:05)
--- NOTE | 2019-03-10 23:05 | ED ---
Upper Extremity Pain - HPI Summary HPI Summary: Patient with history of multiple surgeries on left arm. Most recent surgery on 02/26/19 for cubital nerve release on the left elbow and carpal tunnel release of left wrist. Complains of extreme pain at surgical incision of left elbow radiating down left forearm. States pain has been progressive since surgery, associated with spasms of fingers of left hand. Surgeon is Dr. Lazcano at [facility]. Denies new trauma, purulent discharge from surgical incisions, swelling, erythema, fever, N/V, loss of sensation or function in left upper extremity. Patient has prescription for Nucynta, oxycodone, Valium with no relief. Patient has appointment for follow-up this coming Monday. Denies any other pain, injury or symptoms. Medical history is HTN. - History of Current Complaint Chief Complaint: EDExtremityUpper Stated Complaint: LEFT FORARM SURGRY POSSIBLE INFECTION Time Seen by Provider: 03/10/19 22:46 Hx Obtained From: Patient, Family/Winch Stripper Mechanism Of Injury: Unknown Onset/Duration: Started Days Ago Timing: Constant Severity Initially: Severe Severity Currently: Severe Pain Location: Elbow Character: Sharp, Aching, Throbbing Aggravating Factor(s): Movement Alleviating Factor(s): Nothing Associated Signs & Symptoms: Positive: Negative - Allergies/Home Medications Allergies/Adverse Reactions: Allergies Allergy/AdvReac Type Severity Reaction Status Date / Time Penicillins Allergy Severe Hives Verified 09/28/18 08:32 PMH/Surg Hx/FS Hx/Imm Hx Endocrine/Hematology History: Denies: Hx Diabetes Cardiovascular History: Reports: Hx Hypertension - controlled with medications ( not well as of 09/28/18) Denies: Hx Pacemaker/ICD Respiratory History: Denies: Hx Asthma History: Denies: Hx Dialysis, Hx Renal Disease Musculoskeletal History: Denies: Other Musculoskeletal History - LEFT ELBOW BICEPS RUPTURE Sensory History: Reports: Hx Contacts or Glasses - GLASSES Denies: Hx Hearing Aid Opthamlomology History: Reports: Hx Contacts or Glasses - GLASSES EENT History: Denies: Hx Deafness Neurological History: Denies: Hx Dementia Psychiatric History: Denies: Hx Panic Disorder - Surgical History Surgery Procedure, Year, and Place: 1991 LEFT SHOULDER RECONSTRUCTION, [facility],. right carpel tunnel 2016. LEFT ELBOW 2017-RUPTURED BICEP with Compartment Syndrome and Fasciotomy with skin graft from LEFT LE Thigh anteriorly Hx Anesthesia Reactions: No Infectious Disease History: No Infectious Disease History: Denies: Hx Clostridium Difficile, Hx Hepatitis, Hx Human Immunodeficiency Virus (HIV), Hx of Known/Suspected MRSA, Hx Shingles, Hx Tuberculosis, History Other Infectious Disease, Traveled Outside the [place] in Last 30 Days - Family History Known Family History: Positive: Other - Negative anesthesia reaction - Social History Alcohol Use: Occasionally Alcohol Amount: 7 Hx Substance Use: No Substance Use Type: Reports: Excessive Caffeine Substance Use Comment - Amount & Last Used: more than 4 cups/day Hx Tobacco Use: No Smoking Status (MU): Never Smoked Tobacco Have You Smoked in the Last Year: No Review of Systems Constitutional: Negative Eyes: Negative ENT: Negative Cardiovascular: Negative Respiratory: Negative Gastrointestinal: Negative Genitourinary: Negative Musculoskeletal: Other Skin: Negative Neurological: Negative Psychological: Normal All Other Systems Reviewed And Are Negative: Yes Physical Exam - Summary Physical Exam Summary: Surgical incision on left elbow is clean, dry and intact. No evidence of erythema, swelling, purulent discharge. Suture remains in place. Patient has full range of motion of left elbow. Pain with palpation of surgical incision. Button Station Worker strength is normal distally in left hand, pain with contraction of left hand. Surgical incision on volar surface of left wrist is clean dry and intact. No erythema, extra warmth, purulent discharge noted. No pain with palpation. Forearm is soft nontender. Triage Information Reviewed: Yes Vital Signs On Initial Exam: Initial Vitals Temp Pulse Resp BP Pulse Ox 99.3 F 114 20 160/101 99 03/10/19 22:02 03/10/19 22:02 03/10/19 22:02 03/10/19 22:02 03/10/19 22:02 Vital Signs Reviewed: Yes Appearance: Positive: Well-Appearing Skin: Positive: Warm Head/Face: Positive: Normal Head/Face Inspection Eyes: Positive: Normal Neck: Positive: Supple Respiratory/Lung Sounds: Positive: Clear to Auscultation Cardiovascular: Positive: Normal Abdomen Description: Positive: Nontender Musculoskeletal: Positive: Normal Neurological: Positive: Normal Psychiatric: Positive: Normal AVPU Assessment: Alert - [place] Coma Scale Best Eye Response: 4 - Spontaneous Best Motor Response: 6 - Obeys Commands Best Verbal Response: 5 - Oriented Coma Scale Total: 15 Diagnostics - Vital Signs Vital Signs Temp Pulse Resp BP Pulse Ox 03/10/19 22:02 99.3 F 114 20 160/101 99 - Laboratory Result Diagrams: 03/10/19 23:21 03/10/19 23:21 Lab Statement: Any lab studies that have been ordered have been reviewed, and results considered in the medical decision making process. Course/Dx - Course Course Of Treatment: Patient with history of multiple surgeries on left arm. Most recent surgery on 02/26/19 for cubital nerve release on the left elbow and carpal tunnel release of left wrist. Complains of extreme pain at surgical incision of left elbow radiating down left forearm. States pain has been progressive since surgery, associated with spasms of fingers of left hand. Surgeon is Dr. Lazcano at [facility]. Denies new trauma, purulent discharge from surgical incisions, swelling, erythema, fever, N/V, loss of sensation or function in left upper extremity. Patient has prescription for Nucynta, oxycodone, Valium with no relief. Patient has appointment for follow- up this coming Monday. Denies any other pain, injury or symptoms. Medical history is HTN. Vital signs within normal limits. Labs unremarkable. Discussed patient with Dr. Urbano, who also physically evaluated patient. Dr. Urbano recommended 20 mg morphine IV. Patient pain improved with morphine 20 mg IV. Pain returned and patient was given another morphine 20 mg IV per recommendation of Dr. Urbano.. Patient will be discharged with a 4 pack of oxycodone. Patient intends to follow-up with his surgeon tomorrow. - Diagnoses Provider Diagnoses: Postoperative pain Discharge - Sign-Out/Discharge Documenting (check all that apply): Patient Departure Patient Received Moderate/Deep Sedation with Procedure: No - Discharge Plan Condition: Stable Disposition: HOME Patient Education Materials: Arm Pain (ED) Referrals: Marquis Moreno MD [Primary Care Provider] - Additional Instructions: Follow-up with your orthopedic surgeon [facility] tomorrow. - Billing Disposition and Condition Condition: STABLE Disposition: Home
[2019-03-10 23:33] LABS: ABS Basophils 0.1 10^3/ul (0-0.2); ABS Eosinophils 0.5 10^3/ul (0-0.6); ABS Lymphocytes 2.1 10^3/ul (1.0-4.8); ABS Monocytes 0.6 10^3/ul (0-0.8); ABS Neutrophils 4.7 10^3/ul (1.5-7.7); Eosinophil % 6.5 %; Hematocrit 43 % (42-52); Hemoglobin 14.8 g/dL (14.0-18.0); Lymphocyte % 26.4 %; Mean Corpuscular HGB Conc 34 g/dL (31-36); Mean Corpuscular Hemoglobin 28 pg (27-31); Mean Corpuscular Volume 82 fL (80-94); Mean Platelet Volume 9.1 fL (7.4-10.4); Nucleated Red Blood Cells % 0.1; Platelet Count 235 10^3/uL (150-450); Red Blood Count 5.32 10^6 /uL (4.18-5.48); Red Cell Distribution Width 15 % (10-15)
[2019-03-10 23:50] LABS: Albumin 4.8 g/dL (3.2-5.2); Albumin/Globulin Ratio 2.2 (1-3); BUN/Creatinine Ratio 18.2 (8-20); C Reactive Protein 2.37 mg/L (<8.01); Globulin 2.2 g/dL (2-4); Potassium 3.4 mmol/L (3.5-5.0); Total Bilirubin 0.3 mg/dL (0.2-1.0)
[2019-03-11] MEDS ORDERED: Morphine 4 MG/ML VIAL (1 ml) 4 MG/ML VIAL IV ONE (01:39)
[2019-03-11 02:23] VITALS: BP 129/101
== END 2019-03-11 02:20 | disposition home or self-care (01) ==
LOC: ED 21:58
DX: G89.18 Other acute postprocedural pain (principal); I10 Essential (primary) hypertension; Z88.0 Allergy status to penicillin; Z79.899 Other long term (current) drug therapy
CPT/HCPCS: 36415; 80053; 83605; 85025; 86140; 96374; 96375; 96376; 99282; J2270; J2405